=== PATIENT | male | born 1990 | race African-American/Black ===

== ENCOUNTER 2016-12-12 10:20 | Inpatient (IN) | payer SELFPAY ==
[~2016-12-12] VITALS: Ht 175.3 cm; Wt 100.0 kg
[~2016-12-12 10:20] MED LIST: Z.0.NO CURRENT MEDS
[2016-12-12 10:24] VITALS: BP 145/60; PULSE 118; RESP 16; TEMP 98.1; O2SAT 97
[2016-12-12 10:36] VITALS: BP 125/60; PULSE 112; RESP 21; O2SAT 95
[2016-12-12] MEDS ORDERED: BENZ100 PO (10:55)
[2016-12-12] MEDS ORDERED: GABA300C5 PO (10:55)
--- NOTE | 2016-12-12 11:06 | PD ---
HPI Chief Complaint: Chest Pain Time Seen by Provider: 10:37 Travel History International Travel<30 days: No Contact w/Intl Traveler<30days: No Traveled to known affect area: No History of Present Illness HPI 26-year-old male complains of chest pain, shortness of breath, abdominal pain and weight loss. Patient states that he was admitted to [facility] in 2010 for enlarged liver. Patient was discharged without clear etiology of enlarged liver. Patient started having chronic cough and chest pain for the past 6 months. Patient has been seen at [facility] and by personal physician without clear etiology of the chronic cough. Patient was put on several rounds of antibiotics including Z-Placido without relief. Patient states the cough is chronic and dry cough. Patient denies any fever chills. Patient states that he has frequent night sweat. Patient denies any dysuria or frequency. Patient states that he has substernal chest pain sharp pain and worse with swallowing and cough. Patient denies any chest pain radiation. Patient denies palpitation diaphoresis . Patient states that he has intermittent or abdominal pain diffuse over the abdomen. Patient denies any pain radiation. Patient states the pain is worse with pressure on the abdomen. Patient denies any history of cardiac or pulmonary disease. Patient states that he has recent weight loss. Patient complains of bilateral toe numbness for the past 4 months. Patient was seen by personal physician and at [facility] and put on gabapentin without much relief of the numbness of the toes. [facility] Past Medical History Diminished Hearing: No Gastrointestinal Disorders: Yes (LIVER IS ENLARGED 2010) Neurologic: Yes (NEUROPATHY) Immunizations Current: No Tetanus Vaccination: Unknown Influenza Vaccination: No Past Surgical History Appendectomy: Yes Social History Alcohol Use: No Tobacco Use: No Substance Use: No Allergies-Medications (Allergen,Severity, Reaction): Coded Allergies: Penicillin (Verified Allergy, Mild, 12/12/16) Reported Meds & Prescriptions Reported Meds & Active Scripts Active Reported Tessalon Perles (Benzonatate) 100 Mg Cap 100 Mg PO TID PRN Gabapentin 300 Mg Cap 300 Mg PO TID Review of Systems General / Constitutional: No: Fever Eyes: No: Visual changes HENT: No: Headaches Cardiovascular: Positive: Chest Pain or Discomfort Respiratory: No: Shortness of Breath Gastrointestinal: Positive: Abdominal Pain Genitourinary: No: Dysuria Musculoskeletal: No: Pain Skin: No Rash Neurologic: No: Weakness Psychiatric: No: Depression Endocrine: No: Polydipsia Hematologic/Lymphatic: No: Easy Bruising Physical Exam Narrative GENERAL: Well-nourished, well-developed patient. SKIN: Focused skin assessment warm/dry. HEAD: Normocephalic. EYES: No scleral icterus. No injection or drainage. NECK: Supple, trachea midline. No JVD or lymphadenopathy. CARDIOVASCULAR: Regular rate and rhythm without murmurs, gallops, or rubs. RESPIRATORY: Breath sounds equal bilaterally. No accessory muscle use. GASTROINTESTINAL: Abdomen soft, nondistended. Patient has mild diffuse tenderness over the abdomen. No rebound tenderness. No mass. MUSCULOSKELETAL: No cyanosis, or edema. BACK: Nontender without obvious deformity. No CVA tenderness. Neurologic exam normal. Data Data Last Documented VS Vital Signs Date Time Temp Pulse Resp B/P Pulse Ox O2 Delivery O2 Flow Rate FiO2 12/12/16 10:55 Room Air 12/12/16 10:36 112 21 125/60 95 12/12/16 10:24 98.1 Orders Electrocardiogram (12/12/16 10:53) Complete Blood Count With Diff (12/12/16 10:53) Comprehensive Metabolic Panel (12/12/16 10:53) Creatine Kinase (Cpk) (12/12/16 10:53) Troponin I (12/12/16 10:53) B-Type Natriuretic Peptide (12/12/16 10:53) Prothrombin Time / Inr (Pt) (12/12/16 10:53) Act Partial Throm Time (Ptt) (12/12/16 10:53) Lipase (12/12/16 10:53) Urinalysis - C+S If Indicated (12/12/16 10:53) Chest, Single Ap (12/12/16 10:53) Ct Abd/Pel W Iv Contrast(Rout) (12/12/16 10:53) Iv Access Insert/Monitor (12/12/16 10:53) Ecg Monitoring (12/12/16 10:53) Oximetry (12/12/16 10:53) Ct Pulmonary Angiogram (12/12/16 10:53) D-Dimer (12/12/16 10:53) Hiv 1 2 Ab Differentiation (12/12/16 10:59) CKMB (12/12/16 11:00) CKMB% (12/12/16 11:00) Iohexol 350 Inj (Omnipaque 350 Inj) (12/12/16 13:23) Ldh Serum (12/12/16 15:33) Lactic Acid Sepsis Protocol (12/12/16 15:33) Arterial Blood Gas (Abg) (12/12/16 ) Place In Observation (12/12/16 ) Vital Signs (Adult) MYLES.Q4H (12/12/16 15:33) Activity Bed Rest (12/12/16 15:33) Intake + Output 06,14,22 (12/12/16 15:33) Diet Regular Basic (12/12/16 Dinner) Resp Oxygen Shade C Titrat 1-4 L (12/12/16 ) Sodium Chloride 0.9% Flush (Ns Flush) (12/12/16 21:00) Benzonatate (Tessalon) (12/12/16 15:45) Gabapentin (Neurontin) (12/12/16 18:00) Guaifen-Cod 200-20 Mg/10ml Liq (Robituss (12/12/16 15:45) Guaifenesin Er (Mucinex Er) (12/12/16 21:00) Admit Order (Ed Use Only) (12/12/16 15:47) Levofloxacin 750 Mg Premix Inj (Levaquin (12/12/16 16:00) Sulfamet-Trimeth Ds 800-160 Mg (Bactrim (12/12/16 16:00) Labs Laboratory Tests Test 12/12/16 12/12/16 12/12/16 11:00 11:05 11:35 White Blood Count 5.5 TH/MM3 Red Blood Count 3.61 MIL/MM3 Hemoglobin 10.0 GM/DL Hematocrit 30.4 % Mean Corpuscular Volume 84.0 FL Mean Corpuscular Hemoglobin 27.8 PG Mean Corpuscular Hemoglobin 33.0 % Concent Red Cell Distribution Width 16.4 % Platelet Count 266 TH/MM3 Mean Platelet Volume 8.4 FL Neutrophils (%) (Auto) 69.2 % Lymphocytes (%) (Auto) 20.6 % Monocytes (%) (Auto) 9.0 % Eosinophils (%) (Auto) 0.3 % Basophils (%) (Auto) 0.9 % Neutrophils # (Auto) 3.8 TH/MM3 Lymphocytes # (Auto) 1.1 TH/MM3 Monocytes # (Auto) 0.5 TH/MM3 Eosinophils # (Auto) 0.0 TH/MM3 Basophils # (Auto) 0.1 TH/MM3 CBC Comment AUTO DIFF Differential Total Cells 100 Counted Neutrophils % (Manual) 63 % Band Neutrophils % 15 % Lymphocytes % 16 % Monocytes % 6 % Neutrophils # (Manual) 4.3 TH/MM3 Differential Comment FINAL DIFF MANUAL Platelet Estimate NORMAL Platelet Morphology Comment NORMAL Red Cell Morphology Comment NORMAL Prothrombin Time 10.8 SEC Prothromb Time International 1.0 RATIO Ratio Activated Partial 28.9 SEC Thromboplast Time D-Dimer Quantitative (PE/DVT) 0.79 MG/L FEU Sodium Level 139 MEQ/L Potassium Level 3.9 MEQ/L Chloride Level 106 MEQ/L Carbon Dioxide Level 24.8 MEQ/L Anion Gap 8 MEQ/L Blood Urea Nitrogen 14 MG/DL Creatinine 0.95 MG/DL Estimat Glomerular Filtration 117 ML/MIN Rate Random Glucose 70 MG/DL Calcium Level 8.1 MG/DL Total Bilirubin 0.5 MG/DL Aspartate Amino Transf 46 U/L (AST/SGOT) Alanine Aminotransferase 35 U/L (ALT/SGPT) Alkaline Phosphatase 63 U/L Total Creatine Kinase 358 U/L Creatine Kinase MB 1.5 NG/ML Creatine Kinase MB % 0.4 % Troponin I LESS THAN 0.02 NG/ML B-Type Natriuretic Peptide 17 PG/ML Total Protein 8.7 GM/DL Albumin 3.3 GM/DL Lipase 200 U/L Urine Color YELLOW Urine Turbidity CLEAR Urine pH 6.5 Urine Specific [place] 1.020 Urine Protein 30 mg/dL Urine Glucose (UA) NEG mg/dL Urine Ketones NEG mg/dL Urine Occult Blood NEG Urine Nitrite NEG Urine Bilirubin NEG Urine Urobilinogen 2.0 MG/DL Urine Leukocyte Esterase NEG Urine RBC LESS THAN 1 /hpf Urine WBC 1 /hpf Urine Squamous Epithelial <1 /hpf Cells Microscopic Urinalysis Comment CULT NOT INDICATED HIV (1&2) Antibody REFLEX MDM Medical Decision Making Medical Screen Exam Complete: Yes Emergency Medical Condition: Yes Interpretation(s) Last Impressions Chest X-Ray 12/12/16 1053 Signed Impressions: Service Date/Time: Monday, December 12, 2016 10:57 - CONCLUSION: 1. No acute cardiopulmonary disease. Aakash Bill MD 12 25 PM. CBC WBC 5.5. Hemoglobin 10.0 hematocrit 30.4. Normal differential. CMP within normal limit. Total CK 358. Normal MB fraction. Troponin normal. BNP normal. D-dimer 0.79. UA is negative. 1418 p.m. Differential Diagnosis Differential diagnosis including reactive airway disease, TB, HIV infection, bronchitis, pneumonia, gastritis, PUD, think otitis, cholecystitis, colitis, UTI , pyelonephritis, neuropathy. Narrative Course 26-year-old male with multiple complaints including chronic cough, chest pain, abdominal pain, weight loss, nasal and told numbness. Levaquin 750 mg IV. Bactrim DS one tablet by mouth given. Diagnosis Primary Impression: Pneumonia Qualified Code: J18.9 - Pneumonia of both lungs due to infectious organism, unspecified part of lung Additional Impressions: Viral infection Atypical chest pain Dysphagia Qualified Code: R13.19 - Other dysphagia Abdoul Burns MD Dec 12, 2016 11:06
--- NOTE | 2016-12-12 11:25 | RADRPT ---
EXAM DATE/TIME: 12/12/2016 10:57 [facility] COMPARISON: No previous studies available for comparison. INDICATIONS : Short of breath and chest pain. MEDICAL HISTORY : None. SURGICAL HISTORY : None. ENCOUNTER: Initial ACUITY: 4 - 6 months PAIN SCORE: 0/10 LOCATION: Bilateral chest FINDINGS: A single view of the chest demonstrates the lungs to be symmetrically aerated without evidence of mas s, infiltrate or effusion. The cardiomediastinal contours are unremarkable. Osseous structures are intact. CONCLUSION: 1. No acute cardiopulmonary disease. Aakash Bill MD on December 12, 2016 at 11:22 Board Certified Radiologist. This report was verified electronically.
[2016-12-12 11:31] LABS: AUTOMATED NEUTROPHIL # 3.8 TH/MM3 (1.8-7.7); BASOPHIL # 0.1 TH/MM3 (0-0.2); BASOPHIL % 0.9 % (0.0-2.0); EOSINOPHIL % 0.3 % (0.0-4.0); HEMATOCRIT 30.4 % (39.0-51.0); LYMPH % 20.6 % (9.0-44.0); LYMPHOCYTE # 1.1 TH/MM3 (1.0-4.8); MEAN CORPUSCULAR HEMOGLOBIN 27.8 PG (27.0-34.0); NEUT % 69.2 % (16.0-70.0); PLATELET COUNT 266 TH/MM3 (150-450); RED BLOOD COUNT 3.61 MIL/MM3 (4.50-5.90); RED CELL DISTRIBUTION WIDTH 16.4 % (11.6-17.2); WHITE BLOOD COUNT 5.5 TH/MM3 (4.0-11.0)
[2016-12-12 11:32] LABS: HEMO FLAGS AUTO DIFF
[2016-12-12 11:38] LABS: BLOOD, URINE NEG (NEG); COMMENT (UR) CULT NOT INDICATED; CULTURE IF INDICATED CULT NOT INDICATED; GLUCOSE,URINE NEG (NEG); KETONE, URINE NEG (NEG); NITRITE,URINE NEG (NEG); PH, URINE 6.5 (5.0-8.5); SQUAMOUS EPITHELIAL CELL URINE <1 /hpf (0-5); URINE COLOR YELLOW (YELLW/STRAW)
[2016-12-12 11:46] LABS: APTT (PATIENT) 28.9 SEC (24.3-30.1); PROTHROMBIN TIME - PATIENT 10.8 SEC (9.8-11.6)
[2016-12-12 11:58] LABS: ALKALINE PHOSPHATASE 63 U/L (45-117); ALT (GPT) 35 U/L (12-78); ANION GAP 8 MEQ/L (5-15); AST (GOT) 46 U/L (15-37); BICARBONATE 24.8 MEQ/L (21.0-32.0); BLOOD UREA NITROGEN 14 MG/DL (7-18); CHLORIDE 106 MEQ/L (98-107); CREATINE KINASE 358 U/L (39-308); GLOMERULAR FILTRATION RATE 117 ML/MIN (>89); POTASSIUM 3.9 MEQ/L (3.5-5.1); SODIUM (NA) 139 MEQ/L (136-145); TOTAL BILIRUBIN ADULT 0.5 MG/DL (0.2-1.0)
[2016-12-12 12:09] LABS: BANDS 15 % (0-6); NEUTROPHIL # MANUAL DIFF 4.3 TH/MM3 (1.8-7.7); PLATELET ESTIMATE SMEAR NORMAL (NORMAL); PLATELET MORPHOLOGY NORMAL (NORMAL); POLYS (SEG NEUTROPHILS) 63 % (16-70); SCAN/DIFF FINAL DIFF MANUAL; WBC DIFF SAMPLE 100
[2016-12-12 12:10] LABS: CKMB 1.5 NG/ML (0.5-3.6)
[2016-12-12] MEDS ORDERED: IOHEXOL 350 MG/ML 10 ML VIAL (for RAD DIAG) IV ONE (13:23)
--- NOTE | 2016-12-12 13:56 | RADRPT ---
EXAM DATE/TIME: 12/12/2016 12:40 [facility] COMPARISON: No previous studies available for comparison. INDICATIONS : Chronic cough and chest, abdominal pain for 6 months IV CONTRAST: 95 cc Omnipaque 350 (iohexol) IV ORAL CONTRAST: No oral contrast ingested. RADIATION DOSE: 15.14 CTDIvol (mGy) MEDICAL HISTORY : Enlarged liver SURGICAL HISTORY : Appendectomy. ENCOUNTER: Initial ACUITY: 4 - 6 months PAIN SCALE: 7/10 LOCATION: Abdomen TECHNIQUE: Volumetric scanning of the chest was performed using a pulmonary embolism protocol MIP images were re constructed. Using automated exposure control and adjustment of the mA and/or kV according to patien t size, radiation dose was kept as low as reasonably achievable to obtain optimal diagnostic quality images. FINDINGS: No pulmonary embolus is identified. There are mild scattered areas of vague parenchymal density seen throughout the lungs likely representing areas of atelectasis or mild inters titial consolidation. There is some more focal increased density at the right middle lobe and posterior med ial lower lobes bilaterally being more prominent on the left likely representing some more prominent super-impo sed atelectasis or mild consolidation. There is a 5 mm pulmonary nodule seen at the posterior medial rig ht lower lobe. No pleural effusion is seen. There is a normal amount of pericardial fluid seen. Significant adenopathy is not appreciated. CONCLUSION: 1. No pulmonary embolus. 2. Multiple patchy areas of faint opacities seen throughout the lungs likely representing areas of at electasis or interstitial consolidation. There are some more focal areas of more prominent atelectas is or consolidation seen on the right middle lobe and the posterior lower lobes bilaterally. 3. 5 mm non-specific pulmonary nodule in the right lower lobe, this does appear smooth. Given the pa tient age this likely represents a non-calcified granuloma. It could be followed up with a noncontra st CT examination in one year. Kai Prescott MD on December 12, 2016 at 13:20 Board Certified Radiologist. This report was verified electronically.
--- NOTE | 2016-12-12 14:13 | RADRPT ---
EXAM DATE/TIME: 12/12/2016 12:40 [facility] COMPARISON: No previous studies available for comparison. INDICATIONS : Generalized abdominal pain. IV CONTRAST: 96 cc Omnipaque 350 (iohexol) IV ; Cumulative dose for multiple exams. ORAL CONTRAST: No oral contrast ingested. RADIATION DOSE: 15.14 CTDIvol (mGy) MEDICAL HISTORY : None SURGICAL HISTORY : Appendectomy. ENCOUNTER: Initial ACUITY: 1 day PAIN SCALE: 0/10 LOCATION: Bilateral abdomen TECHNIQUE: Volumetric scanning of the abdomen and pelvis was performed. Using automated exposure control and ad justment of the mA and/or kV according to patient size, radiation dose was kept as low as reasonably achievable to obtain optimal diagnostic quality images. FINDINGS: LOWER LUNGS: Minimal bibasilar atelectasis versus scarring. LIVER: Homogeneous density without lesion. There is no dilation of the biliary tree. No calcified gallston es. SPLEEN: Normal size without lesion. PANCREAS: Within normal limits. KIDNEYS: Normal in size and shape. There is no mass, stone or hydronephrosis. ADRENAL GLANDS: Within normal limits. VASCULAR: There is no aortic aneurysm. BOWEL/MESENTERY: Postsurgical features of prior appendectomy. Bowel appears grossly unremarkable without evidence for obstruction. No significant free fluid or air the fluid collection. ABDOMINAL WALL: Within normal limits. RETROPERITONEUM: There is no lymphadenopathy. BLADDER: No wall thickening or mass. REPRODUCTIVE: Within normal limits. INGUINAL: There is no lymphadenopathy or hernia. MUSCULOSKELETAL: Within normal limits for patient age. CONCLUSION: 1. Postsurgical features of prior appendectomy. 2. No CT findings to explain patient's abdominal pain. 3. Unremarkable CT examination of the abdomen and pelvis. Aakash Bill MD on December 12, 2016 at 14:05 Board Certified Radiologist. This report was verified electronically.
[2016-12-12] MEDS ORDERED: guaiFENesin/CODEINE SYRUP 200 MG/20 MG/10 ML CUP PO PRN (15:45)
[2016-12-12] MEDS ORDERED: BENZONATATE 100 MG CAP PO PRN (15:45)
[2016-12-12] MEDS ORDERED: LEVOFLOXACIN 750 MG PREMIX INJ 150 ML IV ONE (16:00)
[2016-12-12] MEDS ORDERED: SULFAMETHOXAZOLE-TRIMETHOPRIM DS 800-160 MG TAB PO ONE (16:00)
[2016-12-12] MEDS ORDERED: ALUMINUM/MAGNESIUM/SIMETH 30 ML CUP PO PRN (16:15)
[2016-12-12] MEDS ORDERED: SODIUM CHLORIDE 0.9% FLUSH 10 ML FLUSH IV FLUSH PRN (16:15)
[2016-12-12] MEDS ORDERED: CALCIUM CARBONATE 500 MG CHEWABLE TAB CHEW PRN (16:15)
[2016-12-12] MEDS ORDERED: MAGNESIUM HYDROXIDE SUSP 30 ML CUP PO PRN (16:15)
[2016-12-12] MEDS ORDERED: traMADol HCL 50 MG TAB PO PRN ×2 (16:15)
[2016-12-12] MEDS ORDERED: ONDANSETRON HCL 4 MG/2 ML VIAL IVP PRN (16:15)
[2016-12-12] MEDS ORDERED: NALOXONE HCL 0.4 MG/ML AMP IV PRN (16:15)
[2016-12-12] MEDS ORDERED: LACTULOSE SYRUP 20 GM/30 ML CUP PO PRN (16:15)
[2016-12-12] MEDS ORDERED: ACETAMINOPHEN 325 MG TAB PO PRN ×2 (16:15)
[2016-12-12] MEDS ORDERED: MORPHINE SULFATE 4 MG/ML INJ IV PRN (16:15)
--- NOTE | 2016-12-12 16:35 | HHI.HP ---
[facility] Physician Gtuierrez Leon MD Admission Diagnosis pneumonia. Viral infection Diagnoses: Chief Complaint: Chest pain Travel History International Travel<30 Days: No Contact w/Intl Traveler <30 Da: No Traveled to Known Affected Are: No Sepsis Criteria SIRS Criteria (2 or more): Heart rate over 90, WBC > 70245, < 4000 or > 10% bands Sepsis Criteria (SIRS+source): Infect source susp/known Criteria Outcome: Meets sepsis criteria History of Present Illness This is a 26-year-old male with a history of enlarged liver and peripheral neuropathy. He presents to the emergency department because of worsening chest pain. Started about 6 months ago he developed nonproductive cough. States he was prescribed Z-Placido 5 months ago by his PCP with partial temporary improvement of his symptoms. It is associated with transient fever and night sweats. He also reports of weight loss of 30 pounds denies anorexia. He was again treated with the same antibiotic 3 months ago with similar results. No TB exposure but works in a [employer]. For the past week he has complained of intermittent pleuritic retrosternal sharp pain worse with coughing and eating. He also notes of odynophagia. In the emergency department, tested positive for HIV pending confirmatory test. CTA no PE but was abnormal showing multiple patchy areas of faint opacity seen throughout the lungs likely representing areas of atelectasis or interstitial consolidation. There are some more focal areas of more prominent atelectasis or consolidation seen on the right middle lobe in the posterior lower lobes bilaterally. He has been recommended admission for further evaluation and treatment for possible PCP. Denies risk factors for HIV. He also meets criteria for sepsis. Also endorses bilateral toe numbness for the past 4 months. All other systems reviewed negative Review of Systems Except as stated in HPI: all other systems reviewed are Neg Past Family Social History Past Medical History As previously mentioned Past Surgical History Appendectomy Reported Medications Tessalon and gabapentin Allergies: Coded Allergies: Penicillin (Verified Allergy, Mild, 12/12/16) Levaquin (Verified Allergy, Unknown, HIVES, 12/12/16) Family History No diabetes Social History Does not smoke or drink. No illicit drug use. He works in a nightclub Physical Exam Vital Signs Vital Signs Date Time Temp Pulse Resp B/P Pulse Ox O2 Delivery O2 Flow Rate FiO2 12/12/16 10:55 Room Air 12/12/16 10:36 112 21 125/60 95 12/12/16 10:24 98.1 118 16 145/60 97 Physical Exam GENERAL: This is a well-nourished, well-developed patient, in no apparent distress. SKIN: No rashes, ecchymoses or lesions. Cool and dry. HEAD: Atraumatic. Normocephalic. No temporal or scalp tenderness. EYES: Pupils equal round and reactive. Extraocular motions intact. No scleral icterus. No injection or drainage. ENT: Nose without bleeding, purulent drainage or septal hematoma. Throat without erythema, tonsillar hypertrophy or exudate. Uvula midline. Airway patent. NECK: Trachea midline. No JVD or lymphadenopathy. Supple, nontender, no meningeal signs. CARDIOVASCULAR: Regular rate and rhythm without murmurs, gallops, or rubs. RESPIRATORY: Clear to auscultation. Breath sounds equal bilaterally. No wheezes , rales, or rhonchi. GASTROINTESTINAL: Abdomen soft, non-tender, nondistended. No guarding. MUSCULOSKELETAL: Extremities without clubbing, cyanosis, or edema. No joint tenderness, effusion, or edema noted. No calf tenderness. Negative Homans sign bilaterally. NEUROLOGICAL: Awake and alert. Cranial nerves II through XII intact. Motor and sensory grossly within normal limits. Five out of 5 muscle strength in all muscle groups. Normal speech. Laboratory Laboratory Tests Test 12/12/16 12/12/16 12/12/16 11:00 11:05 11:35 White Blood Count 5.5 Red Blood Count 3.61 Hemoglobin 10.0 Hematocrit 30.4 Mean Corpuscular Volume 84.0 Mean Corpuscular Hemoglobin 27.8 Mean Corpuscular Hemoglobin 33.0 Concent Red Cell Distribution Width 16.4 Platelet Count 266 Mean Platelet Volume 8.4 Neutrophils (%) (Auto) 69.2 Lymphocytes (%) (Auto) 20.6 Monocytes (%) (Auto) 9.0 Eosinophils (%) (Auto) 0.3 Basophils (%) (Auto) 0.9 Neutrophils # (Auto) 3.8 Lymphocytes # (Auto) 1.1 Monocytes # (Auto) 0.5 Eosinophils # (Auto) 0.0 Basophils # (Auto) 0.1 CBC Comment AUTO DIFF Differential Total Cells 100 Counted Neutrophils % (Manual) 63 Band Neutrophils % 15 Lymphocytes % 16 Monocytes % 6 Neutrophils # (Manual) 4.3 Differential Comment FINAL DIFF MANUAL Platelet Estimate NORMAL Platelet Morphology Comment NORMAL Red Cell Morphology Comment NORMAL Prothrombin Time 10.8 Prothromb Time International 1.0 Ratio Activated Partial 28.9 Thromboplast Time D-Dimer Quantitative (PE/DVT) 0.79 Sodium Level 139 Potassium Level 3.9 Chloride Level 106 Carbon Dioxide Level 24.8 Anion Gap 8 Blood Urea Nitrogen 14 Creatinine 0.95 Estimat Glomerular Filtration 117 Rate Random Glucose 70 Calcium Level 8.1 Total Bilirubin 0.5 Aspartate Amino Transf 46 (AST/SGOT) Alanine Aminotransferase 35 (ALT/SGPT) Alkaline Phosphatase 63 Total Creatine Kinase 358 Creatine Kinase MB 1.5 Creatine Kinase MB % 0.4 Troponin I LESS THAN 0.02 B-Type Natriuretic Peptide 17 Total Protein 8.7 Albumin 3.3 Lipase 200 Urine Color YELLOW Urine Turbidity CLEAR Urine pH 6.5 Urine Specific [place] 1.020 Urine Protein 30 Urine Glucose (UA) NEG Urine Ketones NEG Urine Occult Blood NEG Urine Nitrite NEG Urine Bilirubin NEG Urine Urobilinogen 2.0 Urine Leukocyte Esterase NEG Urine RBC LESS THAN 1 Urine WBC 1 Urine Squamous Epithelial <1 Cells Microscopic Urinalysis Comment CULT NOT INDICATED HIV (1&2) Antibody REFLEX Result Diagram: 12/12/16 1100 12/12/16 1100 Imaging EKG tracing interpreted by me with sinus tachycardia Chest x-ray with no acute cardiopulmonary disease image interpreted by me Last Impressions Chest X-Ray 12/12/16 1053 Signed Impressions: Service Date/Time: Monday, December 12, 2016 10:57 - CONCLUSION: 1. No acute cardiopulmonary disease. Aakash Bill MD Abdomen/Pelvis CT 12/12/16 1053 Signed Impressions: Service Date/Time: Monday, December 12, 2016 12:40 - CONCLUSION: 1. Postsurgical features of prior appendectomy. 2. No CT findings to explain patient's abdominal pain. 3. Unremarkable CT examination of the abdomen and pelvis. Aakash Bill MD Assessment and Plan Problem List: (1) Pneumonia ICD Code: J18.9 Status: Acute (2) Atypical chest pain ICD Code: R07.89 Status: Acute Assessment and Plan This is a 26-year-old male who presents to the emergency department because of worsening chest pain. Started about 6 months ago he developed nonproductive cough. States he was prescribed Z-Placido 5 months ago by his PCP with partial temporary improvement of his symptoms. It is associated with transient fever and night sweats. He also reports of weight loss of 30 pounds denies anorexia. He was again treated with the same antibiotic 3 months ago with similar results. No TB exposure but works in a [employer]. For the past week he has complained of intermittent pleuritic retrosternal sharp pain worse with coughing and eating. He also notes of odynophagia. In the emergency department , tested positive for HIV pending confirmatory test. CTA no PE but was abnormal showing multiple patchy areas of faint opacity seen throughout the lungs likely representing areas of atelectasis or interstitial consolidation. There are some more focal areas of more prominent atelectasis or consolidation seen on the right middle lobe in the posterior lower lobes bilaterally. He has been recommended admission for further evaluation and treatment for possible PCP. Denies risk factors for HIV. He also meets criteria for sepsis. Pneumonia. Suspect PCP with a preliminary positive HIV test. CTA with no pulmonary embolus but shows multiple patchy areas of faint opacity seen throughout the lungs likely representing areas of atelectasis or interstitial consolidation. There are some more focal areas of more prominent atelectasis or consolidation seen on the right middle lobe in the posterior lower lobes bilaterally. Check LDH. Start Bactrim IV and consider prednisone pending ABG. Obtain sputum and urinary pneumococcal and Legionella antigen. Consult ID Sepsis. Obtain lactic acid Atypical chest pain secondary to above. EKG with sinus tachycardia. CTA negative for PE Pulmonary nodule in the right lower lobe. Follow-up noncontrast CT in 1 year Odynophagia with epigastric tenderness. Lipase within normal limits. PPI. Consult GI for possible endoscopy Weight loss likely related to above. Obtain TSH Mild AST elevation with history of enlarged liver. Outpatient follow-up Normocytic normochromic anemia. Obtain iron studies. Guaiac stool. Monitor History of neuropathy. Continue Neurontin Low risk for DVT Discussed Condition With Patient and girlfriend(pt requests she be not informed re HIV results. He will make her aware once confirmed. [place] precautions discussed with him) Physician Certification 2 Midnight Certification Type: Admission for Inpatient Services Order for Inpatient Services The services are ordered in accordance with Medicare regulations or non- Medicare payer requirements, as applicable. In the case of services not specified as inpatient-only, they are appropriately provided as inpatient services in accordance with the 2-midnight benchmark. Estimated LOS (days): 2 days is the estimated time the patient will need to remain in the hospital, assuming treatment plan goals are met and no additional complications. Post-Hospital Plan: Home Problem Qualifiers (1) Pneumonia: Qualified Code: J18.9 - Pneumonia of both lungs due to infectious organism, unspecified part of lung Gama Suarez MD Dec 12, 2016 16:35
[2016-12-12 16:40] VITALS: O2SAT 95
[2016-12-12 16:42] LABS: BLOOD GAS CARBOXYHEMOGLOBIN 1.2 % (0-4); BLOOD GAS HCO3 23 mmol/L (22-26); BLOOD GAS METHEMOGLOBIN 0.5 % (0-2); BLOOD GAS O2 HGB SATURATION 93 % (90-100); BLOOD GAS OXYGEN CONTENT 13.9 Vol % (12.0-20.0); BLOOD GAS PCO2 34 mmHg (38-42); BLOOD GAS PO2 73 mmHG (61-120); BLOOD GAS TOTAL HGB 10.6 G/DL (12.0-16.0); CRITICAL VALUE NO; DRAW SITE RT RADIAL; FIO2 21 %; NUMBER OF ARTERIAL PUNCTURES 1; STAT YES; TEMP CORR TO 98.6; ULNAR PULSE PRESENT
[2016-12-12 17:00] VITALS: BP 120/74; PULSE 104; RESP 24; O2SAT 99
--- NOTE | 2016-12-12 17:08 | PD.CONS ---
HPI History of Present Illness This is a 26 year old with hx enlarged liver, peripheral neuropathy, who presented to ER today for chest pains and worsening of peripheral neuropathy in his feet, he could barely walk. He has had painful swallowing for two and a half weeks. It also hurts if he coughs. It hurts when he eats but he is able to drink water. The pain when swallowing is in mid sternal. He went to see his PCP and was told it was URI. 2 and half weeks ago he had neg rapid strep test at [facility], was given 2 zpacks. He has had a cough for [address] he may have PNA. Has lost 30 lbs in 6 months, denies change in appetite or food intake. Denies regurgitating food, n/v, abdominal pain, diarrhea, acid reflux, change in bowel habits. Never had EGD. He has hx enlarged liver, says he was in the hospital in 2010 when it was discovered and had colonoscopy, doesn't recall findings. [facility] Past Medical History enlarged liver peripheral neuropathy Past Surgical History Appendectomy colonoscopy 2010 Coded Allergies: Penicillin (Verified Allergy, Mild, 12/12/16) Levaquin (Verified Allergy, Unknown, HIVES, 12/12/16) Family History none Social History rare ETOH, no tobacco products, illicit drugs Review of Systems Constitutional: COMPLAINS OF: Diaphoretic episodes, Fever Eyes: DENIES: Blurred vision Ears, nose, mouth, throat: DENIES: Hearing loss Respiratory: COMPLAINS OF: Cough, DENIES: Hemoptysis, Shortness of breath Cardiovascular: COMPLAINS OF: Chest pain (sternal area when swallowing), DENIES: Palpitations Gastrointestinal: DENIES: Abdominal pain, Black stools, Bloody stools, Diarrhea , Nausea, Vomiting, Hematemesis Genitourinary: DENIES: Hematuria Musculoskeletal: DENIES: Muscle aches Neurologic: COMPLAINS OF: Paresthesias Psychiatric: DENIES: Confusion GI Exam Vitals I&O Vital Signs Date Time Temp Pulse Resp B/P Pulse Ox O2 Delivery O2 Flow Rate FiO2 12/12/16 16:40 95 21 12/12/16 10:55 Room Air 12/12/16 10:36 112 21 125/60 95 12/12/16 10:24 98.1 118 16 145/60 97 Imaging Last Impressions Chest X-Ray 12/12/16 105 Signed Impressions: Service Date/Time: Monday, December 12, 2016 10:57 - CONCLUSION: 1. No acute cardiopulmonary disease. Aakash Bill MD CT Angiography 12/12/16 105 Signed Impressions: Service Date/Time: Monday, December 12, 2016 12:40 - CONCLUSION: 1. No pulmonary embolus. 2. Multiple patchy areas of faint opacities seen throughout the lungs likely representing areas of atelectasis or interstitial consolidation. There are some more focal areas of more prominent atelectasis or consolidation seen on the right middle lobe and the posterior lower lobes bilaterally. 3. 5 mm non-specific pulmonary nodule in the right lower lobe, this does appear smooth. Given the patient age this likely represents a non-calcified granuloma. It could be followed up with a noncontrast CT examination in one year. Kai Prescott MD Abdomen/Pelvis CT [id number]/12/[id number] Signed Impressions: Service Date/Time: Monday, December 12, 2016 12:40 - CONCLUSION: 1. Postsurgical features of prior appendectomy. 2. No CT findings to explain patient's abdominal pain. 3. Unremarkable CT examination of the abdomen and pelvis. Aakash Bill MD Laboratory Test 12/12/16 12/12/16 12/12/16 12/12/16 11:00 11:05 11:35 16:28 White Blood Count 5.5 TH/MM3 Red Blood Count 3.61 MIL/MM3 Hemoglobin 10.0 GM/DL Hematocrit 30.4 % Mean Corpuscular Volume 84.0 FL Mean Corpuscular Hemoglobin 27.8 PG Mean Corpuscular Hemoglobin 33.0 % Concent Red Cell Distribution Width 16.4 % Platelet Count 266 TH/MM3 Mean Platelet Volume 8.4 FL Neutrophils (%) (Auto) 69.2 % Lymphocytes (%) (Auto) 20.6 % Monocytes (%) (Auto) 9.0 % Eosinophils (%) (Auto) 0.3 % Basophils (%) (Auto) 0.9 % Neutrophils # (Auto) 3.8 TH/MM3 Lymphocytes # (Auto) 1.1 TH/MM3 Monocytes # (Auto) 0.5 TH/MM3 Eosinophils # (Auto) 0.0 TH/MM3 Basophils # (Auto) 0.1 TH/MM3 CBC Comment AUTO DIFF Differential Total Cells 100 Counted Neutrophils % (Manual) 63 % Band Neutrophils % 15 % Lymphocytes % 16 % Monocytes % 6 % Neutrophils # (Manual) 4.3 TH/MM3 Differential Comment FINAL DIFF MANUAL Platelet Estimate NORMAL Platelet Morphology Comment NORMAL Red Cell Morphology Comment NORMAL Prothrombin Time 10.8 SEC Prothromb Time International 1.0 RATIO Ratio Activated Partial 28.9 SEC Thromboplast Time D-Dimer Quantitative (PE/DVT) 0.79 MG/L FEU Sodium Level 139 MEQ/L Potassium Level 3.9 MEQ/L Chloride Level 106 MEQ/L Carbon Dioxide Level 24.8 MEQ/L Anion Gap 8 MEQ/L Blood Urea Nitrogen 14 MG/DL Creatinine 0.95 MG/DL Estimat Glomerular Filtration 117 ML/MIN Rate Random Glucose 70 MG/DL Calcium Level 8.1 MG/DL Total Bilirubin 0.5 MG/DL Aspartate Amino Transf 46 U/L (AST/SGOT) Alanine Aminotransferase 35 U/L (ALT/SGPT) Alkaline Phosphatase 63 U/L Total Creatine Kinase 358 U/L Creatine Kinase MB 1.5 NG/ML Creatine Kinase MB % 0.4 % Troponin I LESS THAN 0.02 NG/ML B-Type Natriuretic Peptide 17 PG/ML Total Protein 8.7 GM/DL Albumin 3.3 GM/DL Lipase 200 U/L Urine Color YELLOW Urine Turbidity CLEAR Urine pH 6.5 Urine Specific [place] 1.020 Urine Protein 30 mg/dL Urine Glucose (UA) NEG mg/dL Urine Ketones NEG mg/dL Urine Occult Blood NEG Urine Nitrite NEG Urine Bilirubin NEG Urine Urobilinogen 2.0 MG/DL Urine Leukocyte Esterase NEG Urine RBC LESS THAN 1 /hpf Urine WBC 1 /hpf Urine Squamous Epithelial <1 /hpf Cells Microscopic Urinalysis Comment CULT NOT INDICATED HIV (1&2) Antibody REFLEX Blood Gas Puncture Site RT RADIAL Blood Gas Patient Temperature 98.6 Blood Gas HCO3 23 mmol/L Blood Gas Base Excess 0.0 mmol/L Blood Gas Oxygen Saturation 93 % Arterial Blood pH 7.46 Arterial Blood Partial 34 mmHg Pressure CO2 Arterial Blood Partial 73 mmHG Pressure O2 Arterial Blood Oxygen Content 13.9 Vol % Arterial Blood 1.2 % Carboxyhemoglobin Arterial Blood Methemoglobin 0.5 % Blood Gas Hemoglobin 10.6 G/DL Blood Gas Inspired Oxygen 21 % Physical Examination HEENT: PERRL; normocephalic; atraumatic; no jaundice. CHEST: diminished CARDIAC: tachy ABDOMEN: Soft, nondistended, RUQ TTP; bowel sounds are present in all four quadrants. EXTREMITIES: No clubbing, cyanosis, or edema. SKIN: warm; no rash; no jaundice. STRUCTURES ENGINEER: No focal deficits; alert and oriented times three. Assessment and Plan Plan ASSESSMENT - odynophagia - onset 2.5 weeks ago, hx 2 x zpacks in the last couple weeks. Mid sternal pain swallowing solid food. could be megan - weight loss - 30 lbs in 6m. unclear etiology - isolated elevation AST - rare ETOH consumptions. RUQ pain. Pt claims hx enlarged liver, CT unremarkable. iron studies pending. Will do hep panel, US - anemia - Hgb 10.0 on admission. hemoccult pending. - HIV - pos initial test, confirmatory test pending - PNA - per primary - sepsis - per primary PLAN - EGD tomorrow - liquid diet - NPO after midnight - obtain consents - hepatitis panel - [facility] - Further recommendations to follow This pt seen by myself and Dr Loya and this note is written on his behalf. Cata Joel Dec 12, 2016 17:08
--- NOTE | 2016-12-12 17:14 | EKG ---
Date Performed: 12/12/2016 Time Performed: 10:31:35 PTAGE: 26 years EKG: SINUS TACHYCARDIA NONSPECIFIC T-WAVE ABNORMALITY ABNORMAL RHYTHM ECG NO PREVIOUS TRACING DOCTOR: Juvencio Weinstein Interpretating Date/Time 12/12/2016 17:09:33
[2016-12-12] MEDS: TRIMETHOPRIM IV SCH ×2 (17:28)
[2016-12-12] MEDS: WATE IV SCH ×2 (17:28)
[2016-12-12] MEDS: DEXTROSE 5% IV SCH ×2 (17:28)
[2016-12-12] MEDS: SULFAMETHOX IV SCH ×2 (17:28)
[2016-12-12] MEDS: PANTOPRAZOLE SOD 40 MG DELAYED RELEASE TAB PO SCH (17:28)
[2016-12-12] MEDS: SODIUM CHLOR 0.9% 1000 ML INJ 1,000 ML IV SCH (17:28)
[2016-12-12] MEDS: GABAPENTIN 300 MG CAP PO SCH (17:29)
[2016-12-12 19:33] VITALS: BP 127/58; PULSE 104; RESP 19; O2SAT 96
[2016-12-12 20:23] VITALS: BP 116/57; PULSE 96; RESP 17; TEMP 98.6; O2SAT 95
[2016-12-12] MEDS: SODIUM CHLORIDE 0.9% FLUSH 10 ML FLUSH IV FLUSH SCH (21:00)
[2016-12-12] MEDS ORDERED: SODIUM CHLORIDE 0.9% FLUSH 10 ML FLUSH IV FLUSH SCH (21:00)
[2016-12-12] MEDS: DOCUSATE SODIUM 50 MG/SENNA 8.6 MG TAB PO SCH (22:54)
[2016-12-12] MEDS: guaiFENesin E.R. 600 MG TAB PO SCH (22:54)
--- NOTE | 2016-12-12 23:30 | MB ---
cc: TIFFANI SUAREZ MD, FRANKLYN F. MD DATE OF CONSULTATION: 12/12/2016 REASON FOR CONSULTATION: PCP suspect with sepsis. REQUESTING PHYSICIAN Dr. Suarez HISTORY OF PRESENT ILLNESS This is a 26-year-old male who came to the emergency department because of chest pain. The patient developed shortness of breath and chest pain. He was evaluated and has been admitted to the hospital. The patient notes that over the past 6 months he has suffered from chronic cough and occasionally brings up yellow sputum. He has been treated with several rounds of oral antibiotics without relief. He states that whenever he drinks liquids he gets burning in the chest lately and he also notes that he gets burning in his feet. He was noted to have enlarged liver in 2010 without any etiology. His notes that he has lost approximately 20 pounds of weight. He was recently treated with gabapentin but did not much relief on the numbness of the extremities. On evaluation his heart rate was 112. His white blood cell count was normal, 15% bands. The patient had an HIV screen which reflects positive. [facility]. He denies risk factors for HIV. CT angiogram of the chest shows multiple patchy areas of opacities toward the lungs likely representing atelectasis or interstitial consolidation. Examination of the abdomen and pelvis is unremarkable. PAST MEDICAL HISTORY Appendectomy. ALLERGIES PENICILLIN LEVAQUIN MEDICATIONS 1. Bactrim IV 2. Mucinex. 3. Neurontin 4. Kenzie-Colace. 5. Protonix. 6. Robitussin AC. SOCIAL HISTORY No tobacco, alcohol or illicit drugs. FAMILY HISTORY Noncontributory. REVIEW OF SYSTEMS Pertinent as mentioned above in the history of present illness. PHYSICAL EXAMINATION: This is a well-developed male who is in no acute distress. He is awake, alert and oriented. Vital signs: Include temperature of 98.1, BP 127/58, respirations 89.14. Heart rate 104. HEENT: The head is atraumatic. Extraocular movements grossly intact, pupils reactive to light. No icterus. Oropharynx, no visible lesions. Neck: Supple without adenopathy. Lungs: Clear breath sounds. Heart: Regular rate and rhythm without murmurs, rubs or gallops. Abdomen: Bowel sounds present, soft, nontender. No hepatosplenomegaly. Rectal: Not performed. Extremities: No clubbing, cyanosis or edema. The patient has erosion of both nail beds at the great toe, left and right. Skin: Skin is dry and has a faint hyperemic discoloration at the tibias. No diffuse rash. Neuro: Strength 4/5 at the left upper and left lower extremity, otherwise, no gross focal findings. Psych: The patient is calm and cooperative. LABORATORY DATA WBC 5.5, platelets 266, hemoglobin 10.0, creatinine 0.95, BUN 14, sodium 139, AST 46, ALT 35. IMPRESSION 1. Immunosuppression secondary to HIV disease likely with positive preliminary HIV test. 2. Pneumonia, probably opportunistic versus viral. RECOMMENDATIONS Continue Bactrim Obtain LDH. Follow HIV test Obtain sputum for culture if possible. Thank you this consultation. The patient's progress will be monitored and further recommendations will be made on followup if necessary. Marlon Paige MD FD/MAURISIO /7:35 PM /10:49 PM
[2016-12-13] VITALS: BP 107/54; PULSE 98; RESP 17; TEMP 99.5; O2SAT 95
[2016-12-13] MEDS: TRIMETHOPRIM IV SCH ×6 (00:07→13:40)
[2016-12-13] MEDS: WATE IV SCH ×6 (00:07→13:40)
[2016-12-13] MEDS: DEXTROSE 5% IV SCH ×6 (00:07→13:40)
[2016-12-13] MEDS: SULFAMETHOX IV SCH ×6 (00:07→13:40)
[2016-12-13 04:00] VITALS: BP 110/60; PULSE 79; RESP 17; TEMP 98.2; O2SAT 95
[2016-12-13 05:02] LABS: AUTOMATED NEUTROPHIL # 2.2 TH/MM3 (1.8-7.7); BASOPHIL % 0.6 % (0.0-2.0); EOSINOPHIL % 0.3 % (0.0-4.0); HEMATOCRIT 29.2 % (39.0-51.0); LYMPH % 25.2 % (9.0-44.0); LYMPHOCYTE # 0.9 TH/MM3 (1.0-4.8); MEAN CELL VOLUME 84.6 FL (80.0-100.0); MEAN CORPUSCULAR HEMOGLOBIN 27.3 PG (27.0-34.0); MEAN CORPUSCULAR HGB CONC 32.3 % (32.0-36.0); MONO % 10.5 % (0.0-8.0); NEUT % 63.4 % (16.0-70.0); PLATELET COUNT 247 TH/MM3 (150-450); RED BLOOD COUNT 3.45 MIL/MM3 (4.50-5.90); RED CELL DISTRIBUTION WIDTH 16.7 % (11.6-17.2); WHITE BLOOD COUNT 3.5 TH/MM3 (4.0-11.0)
[2016-12-13 05:07] LABS: HEMO FLAGS AUTO DIFF
[2016-12-13] MEDS: SODIUM CHLOR 0.9% 1000 ML INJ 1,000 ML IV SCH ×2 (05:14→21:47)
[2016-12-13 05:33] LABS: ANION GAP 9 MEQ/L (5-15); BICARBONATE 24.6 MEQ/L (21.0-32.0); BLOOD UREA NITROGEN 10 MG/DL (7-18); CHLORIDE 102 MEQ/L (98-107); GLOMERULAR FILTRATION RATE 123 ML/MIN (>89); LDH SERUM 402 U/L (87-241); POTASSIUM 3.6 MEQ/L (3.5-5.1); SODIUM (NA) 136 MEQ/L (136-145)
[2016-12-13 05:51] LABS: FERRITIN 654 NG/ML (26-388); TRANSFERRIN IRON PROFILE 177 MG/DL (200-360)
[2016-12-13] MEDS ORDERED: CALCIUM GLUCONATE 10% 1 GM/10 ML VIAL IV PUSH ONE (06:30)
[2016-12-13] MEDS ORDERED: CALCIUM GLUCONATE INJ 1 GM in SODIUM CHLORIDE 0.9% INJ 100 ML IV ONE (07:30)
[2016-12-13 07:48] LABS: BANDS 11 % (0-6); METAMYELOCYTES 1 % (0-1); NEUTROPHIL # MANUAL DIFF 3.1 TH/MM3 (1.8-7.7); POLYS (SEG NEUTROPHILS) 77 % (16-70); WBC DIFF SAMPLE 100
[2016-12-13 07:52] LABS: OVALOCYTES 1+ (NORMAL)
[2016-12-13 07:53] LABS: PLATELET ESTIMATE SMEAR NORMAL (NORMAL); PLATELET MORPHOLOGY NORMAL (NORMAL); SCAN/DIFF FINAL DIFF MANUAL
[2016-12-13 08:00] VITALS: BP 124/58; PULSE 95; RESP 16; TEMP 98.6; O2SAT 93
[2016-12-13] MEDS: SODIUM CHLORIDE 0.9% FLUSH 10 ML FLUSH IV FLUSH SCH ×2 (09:00→21:00)
--- NOTE | 2016-12-13 09:34 | HHI.PR ---
Subjective Remarks Follow-up pneumonia and odynophagia. Still with coughing but no chest pain awaiting EGD. Discussed with RN Objective Vitals Vital Signs Date Time Temp Pulse Resp B/P Pulse Ox O2 Delivery O2 Flow Rate FiO2 12/13/16 08:00 98.6 95 16 124/58 93 12/13/16 04:00 98.2 79 17 110/60 95 12/13/16 00:00 99.5 98 17 107/54 95 12/12/16 20:23 98.6 96 17 116/57 95 12/12/16 19:33 19 96 Room Air 12/12/16 19:33 104 19 127/58 96 Room Air 12/12/16 17:00 104 24 120/74 99 Room Air 12/12/16 16:40 95 21 12/12/16 10:55 Room Air 12/12/16 10:36 112 21 125/60 95 12/12/16 10:24 98.1 118 16 145/60 97 I/O 12/12/16 12/12/16 12/12/16 12/13/16 12/13/16 12/13/16 07:00 15:00 23:00 07:00 15:00 23:00 Intake Total 860 ml 2358 ml Output Total 400 ml Balance 860 ml 1958 ml Intake Oral 560 ml 240 ml IV Total 300 ml 1059 ml Packed Cells 1059 ml Output Urine Total 400 ml # Voids 2 Result Diagram: 12/13/16 0414 12/13/16 0414 Imaging Last Impressions Chest X-Ray 12/12/16 1053 Signed Impressions: Service Date/Time: Monday, December 12, 2016 10:57 - CONCLUSION: 1. No acute cardiopulmonary disease. Aakash Bill MD CT Angiography 12/12/16 1053 Signed Impressions: Service Date/Time: Monday, December 12, 2016 12:40 - CONCLUSION: 1. No pulmonary embolus. 2. Multiple patchy areas of faint opacities seen throughout the lungs likely representing areas of atelectasis or interstitial consolidation. There are some more focal areas of more prominent atelectasis or consolidation seen on the right middle lobe and the posterior lower lobes bilaterally. 3. 5 mm non-specific pulmonary nodule in the right lower lobe, this does appear smooth. Given the patient age this likely represents a non-calcified granuloma. It could be followed up with a noncontrast CT examination in one year. Kai Prescott MD Abdomen/Pelvis CT 12/12/16 1053 Signed Impressions: Service Date/Time: Monday, December 12, 2016 12:40 - CONCLUSION: 1. Postsurgical features of prior appendectomy. 2. No CT findings to explain patient's abdominal pain. 3. Unremarkable CT examination of the abdomen and pelvis. Aakash Bill MD Objective Remarks GENERAL: This is a well-nourished, well-developed patient, in no apparent distress. SKIN: No rashes, ecchymoses or lesions. Cool and dry. HEAD: Atraumatic. Normocephalic. No temporal or scalp tenderness. EYES: Pupils equal round and reactive. Extraocular motions intact. No scleral icterus. No injection or drainage. ENT: Nose without bleeding, purulent drainage or septal hematoma. Throat without erythema, tonsillar hypertrophy or exudate. Uvula midline. Airway patent. NECK: Trachea midline. No JVD or lymphadenopathy. Supple, nontender, no meningeal signs. CARDIOVASCULAR: Regular rate and rhythm without murmurs, gallops, or rubs. RESPIRATORY: Clear to auscultation. Breath sounds equal bilaterally. No wheezes , rales, or rhonchi. GASTROINTESTINAL: Abdomen soft, non-tender, nondistended. No guarding. MUSCULOSKELETAL: Extremities without clubbing, cyanosis, or edema. No joint tenderness, effusion, or edema noted. No calf tenderness. Negative Homans sign bilaterally. NEUROLOGICAL: Awake and alert. Cranial nerves II through XII intact. Motor and sensory grossly within normal limits. Five out of 5 muscle strength in all muscle groups. Normal speech. Procedures none A/P Problem List: (1) Pneumonia ICD Code: J18.9 Status: Acute (2) Atypical chest pain ICD Code: R07.89 Status: Acute Assessment and Plan This is a 26-year-old male who presents to the emergency department because of worsening chest pain. Started about 6 months ago he developed nonproductive cough. States he was prescribed Z-Placido 5 months ago by his PCP with partial temporary improvement of his symptoms. It is associated with transient fever and night sweats. He also reports of weight loss of 30 pounds denies anorexia. He was again treated with the same antibiotic 3 months ago with similar results. No TB exposure but works in a [employer]. For the past week he has complained of intermittent pleuritic retrosternal sharp pain worse with coughing and eating. He also notes of odynophagia. In the emergency department , tested positive for HIV pending confirmatory test. CTA no PE but was abnormal showing multiple patchy areas of faint opacity seen throughout the lungs likely representing areas of atelectasis or interstitial consolidation. There are some more focal areas of more prominent atelectasis or consolidation seen on the right middle lobe in the posterior lower lobes bilaterally. He has been recommended admission for further evaluation and treatment for possible PCP. Denies risk factors for HIV. He also meets criteria for sepsis. Pneumonia. Suspect PCP with a preliminary positive HIV test. CTA with no pulmonary embolus but shows multiple patchy areas of faint opacity seen throughout the lungs likely representing areas of atelectasis or interstitial consolidation. There are some more focal areas of more prominent atelectasis or consolidation seen on the right middle lobe in the posterior lower lobes bilaterally. Elevated LDH. Continue Bactrim IV and consider prednisone if worse. Follow-up sputum and urinary pneumococcal and Legionella antigen. Sepsis. Lactic acid within normal limits Atypical chest pain secondary to above. EKG with sinus tachycardia. CTA negative for PE Pulmonary nodule in the right lower lobe. Follow-up noncontrast CT in 1 year Odynophagia with epigastric tenderness. Lipase within normal limits. PPI. For endoscopy today Weight loss likely related to above. TSH WNL Mild AST elevation with history of enlarged liver. Outpatient follow-up Normocytic normochromic anemia. Guaiac stool. For endoscopy. Monitor History of neuropathy. Continue Neurontin Low risk for DVT Discharge Planning Not ready for discharge Problem Qualifiers (1) Pneumonia: Qualified Code: J18.9 - Pneumonia of both lungs due to infectious organism, unspecified part of lung Gama Suarez MD Dec 13, 2016 09:34
[2016-12-13 12:00] VITALS: BP 114/59; PULSE 102; RESP 16; TEMP 100.3; O2SAT 92
[2016-12-13] MEDS: GABAPENTIN 300 MG CAP PO SCH ×2 (13:00→16:56)
--- NOTE | 2016-12-13 14:24 | HHI.IDPN ---
Note Infectious Disease Note Patient feels okay. Notes vomiting up clear fluid. Occasional cough. Afebrile. No chest pain. Presented to the emergency department because of chest pain and SOB. Has had cough for 6 months. PAST MEDICAL HISTORY Appendectomy. ALLERGIES PENICILLIN LEVAQUIN ANTIBIOTICS: Bactrim IV SOCIAL HISTORY No tobacco, alcohol or illicit drugs. Vital Signs Date Time Temp Pulse Resp B/P Pulse Ox O2 Delivery O2 Flow Rate FiO2 12/13/16 12:00 100.3 102 16 114/59 92 12/13/16 08:00 98.6 95 16 124/58 93 12/13/16 04:00 98.2 79 17 110/60 95 12/13/16 00:00 99.5 98 17 107/54 95 12/12/16 20:23 98.6 96 17 116/57 95 12/12/16 19:33 19 96 Room Air 12/12/16 19:33 104 19 127/58 96 Room Air 12/12/16 17:00 104 24 120/74 99 Room Air 12/12/16 16:40 95 21 12/12/16 12/12/16 12/13/16 15:00 23:00 07:00 Intake Total 860 ml 2358 ml Output Total 400 ml Balance 860 ml 1958 ml Intake Oral 560 ml 240 ml IV Total 300 ml 1059 ml Packed Cells 1059 ml Output Urine Total 400 ml # Voids 2 Laboratory Tests Test 12/12/16 12/13/16 11:00 04:14 White Blood Count 5.5 TH/MM3 3.5 TH/MM3 Red Blood Count 3.61 MIL/MM3 3.45 MIL/MM3 Hemoglobin 10.0 GM/DL 9.4 GM/DL Hematocrit 30.4 % 29.2 % Mean Corpuscular Volume 84.0 FL 84.6 FL Mean Corpuscular Hemoglobin 27.8 PG 27.3 PG Mean Corpuscular Hemoglobin 33.0 % 32.3 % Concent Red Cell Distribution Width 16.4 % 16.7 % Platelet Count 266 TH/MM3 247 TH/MM3 Mean Platelet Volume 8.4 FL 8.6 FL Neutrophils (%) (Auto) 69.2 % 63.4 % Lymphocytes (%) (Auto) 20.6 % 25.2 % Monocytes (%) (Auto) 9.0 % 10.5 % Eosinophils (%) (Auto) 0.3 % 0.3 % Basophils (%) (Auto) 0.9 % 0.6 % Neutrophils # (Auto) 3.8 TH/MM3 2.2 TH/MM3 Lymphocytes # (Auto) 1.1 TH/MM3 0.9 TH/MM3 Monocytes # (Auto) 0.5 TH/MM3 0.4 TH/MM3 Eosinophils # (Auto) 0.0 TH/MM3 0.0 TH/MM3 Basophils # (Auto) 0.1 TH/MM3 0.0 TH/MM3 CBC Comment AUTO DIFF AUTO DIFF Differential Total Cells 100 100 Counted Neutrophils % (Manual) 63 % 77 % Band Neutrophils % 15 % 11 % Lymphocytes % 16 % 7 % Monocytes % 6 % 4 % Neutrophils # (Manual) 4.3 TH/MM3 3.1 TH/MM3 Differential Comment FINAL DIFF FINAL DIFF MANUAL MANUAL Platelet Estimate NORMAL NORMAL Platelet Morphology Comment NORMAL NORMAL Red Cell Morphology Comment NORMAL Metamyelocytes 1 % Ovalocytes 1+ Laboratory Tests Test 12/12/16 12/12/16 12/13/16 11:00 16:31 04:14 Sodium Level 139 MEQ/L 136 MEQ/L Potassium Level 3.9 MEQ/L 3.6 MEQ/L Chloride Level 106 MEQ/L 102 MEQ/L Carbon Dioxide Level 24.8 MEQ/L 24.6 MEQ/L Anion Gap 8 MEQ/L 9 MEQ/L Blood Urea Nitrogen 14 MG/DL 10 MG/DL Creatinine 0.95 MG/DL 0.91 MG/DL Estimat Glomerular Filtration 117 ML/MIN 123 ML/MIN Rate Random Glucose 70 MG/DL 74 MG/DL Calcium Level 8.1 MG/DL 7.3 MG/DL Total Bilirubin 0.5 MG/DL Aspartate Amino Transf 46 U/L (AST/SGOT) Alanine Aminotransferase 35 U/L (ALT/SGPT) Alkaline Phosphatase 63 U/L Lactate Dehydrogenase 660 U/L 402 U/L Total Creatine Kinase 358 U/L Creatine Kinase MB 1.5 NG/ML Creatine Kinase MB % 0.4 % Troponin I LESS THAN 0.02 NG/ML B-Type Natriuretic Peptide 17 PG/ML Total Protein 8.7 GM/DL 7.8 GM/DL Albumin 3.3 GM/DL Lipase 200 U/L Thyroid Stimulating Hormone 1.150 uIU/ML 3rd Gen Lactic Acid Level 0.8 mmol/L Protein Corrected Calcium 7.0 MG/DL Iron Level 31 MCG/DL Total Iron Binding Capacity 248 MCG/DL Percent Iron Saturation 12.5 % Ferritin 654 NG/ML PHYSICAL EXAMINATION: GEN: No acute distress. He is awake, alert and oriented. HEENT: No icterus. Oropharynx, no visible lesions. NECK: Supple without adenopathy. Lungs: Clear breath sounds. Heart: Regular rate and rhythm without murmurs, rubs or gallops. Abdomen: Bowel sounds present, soft, nontender. No hepatosplenomegaly. Extremities: No clubbing, cyanosis or edema. The patient has erosion of both nail beds at the great toe, left and right. Skin: Skin is dry and has a faint hyperemic discoloration at the tibias. No diffuse rash. Neuro: Strength 4/5 at the left upper and left lower extremity, otherwise, no gross focal findings. Psych: Calm and cooperative. IMPRESSION 1. Immunosuppression secondary to HIV disease likely with positive preliminary HIV test. 2. Pneumonia, probably opportunistic versus viral. Likely PJP. RECOMMENDATIONS Continue Bactrim, change to PO. Follow HIV test Obtain sputum for culture if possible. Repeat CXR in Am. Marlon Paige MD Dec 13, 2016 14:24
[2016-12-13] MEDS ORDERED: PROPOFOL 200 MG/20 ML AMP IV ONE (15:42)
[2016-12-13 16:00] VITALS: BP 123/56; PULSE 95; RESP 17; TEMP 98.6; O2SAT 92
[2016-12-13] MEDS ORDERED: DO NOT ADM ANY ANTICOAGULANT DRUGS PRN (16:04)
--- NOTE | 2016-12-13 16:07 | HHI.GIFU ---
Subjective Remarks Immediate postop note: EGD with biopsy Indication: Odynophagia Meds: GET anesthesia Findings: Esophagus: typical candidal coating of mid to lower esophagus. Biopsies taken Stomach: mild gastritis. Bx taken duodenum: normal Objective Vitals I&O Vital Signs Date Time Temp Pulse Resp B/P Pulse Ox O2 Delivery O2 Flow Rate FiO2 12/13/16 12:00 100.3 102 16 114/59 92 12/13/16 08:00 98.6 95 16 124/58 93 12/13/16 04:00 98.2 79 17 110/60 95 12/13/16 00:00 99.5 98 17 107/54 95 12/12/16 20:23 98.6 96 17 116/57 95 12/12/16 19:33 19 96 Room Air 12/12/16 19:33 104 19 127/58 96 Room Air 12/12/16 17:00 104 24 120/74 99 Room Air 12/12/16 16:40 95 21 I/O 12/12/16 12/12/16 12/12/16 12/13/16 12/13/16 12/13/16 07:00 15:00 23:00 07:00 15:00 23:00 Intake Total 860 ml 2358 ml 0 ml Output Total 400 ml 800 ml Balance 860 ml 1958 ml -800 ml Intake Oral 560 ml 240 ml 0 ml IV Total 300 ml 1059 ml Packed Cells 1059 ml Output Urine Total 400 ml 800 ml # Voids 2 # Bowel Movements 0 Laboratory Laboratory Tests Test 12/12/16 12/12/16 12/13/16 16:28 16:31 04:14 Blood Gas Puncture Site RT RADIAL Blood Gas Patient Temperature 98.6 Blood Gas HCO3 23 Blood Gas Base Excess 0.0 Blood Gas Oxygen Saturation 93 Arterial Blood pH 7.46 Arterial Blood Partial 34 Pressure CO2 Arterial Blood Partial 73 Pressure O2 Arterial Blood Oxygen Content 13.9 Arterial Blood 1.2 Carboxyhemoglobin Arterial Blood Methemoglobin 0.5 Blood Gas Hemoglobin 10.6 Blood Gas Inspired Oxygen 21 Lactic Acid Level 0.8 White Blood Count 3.5 Red Blood Count 3.45 Hemoglobin 9.4 Hematocrit 29.2 Mean Corpuscular Volume 84.6 Mean Corpuscular Hemoglobin 27.3 Mean Corpuscular Hemoglobin 32.3 Concent Red Cell Distribution Width 16.7 Platelet Count 247 Mean Platelet Volume 8.6 Neutrophils (%) (Auto) 63.4 Lymphocytes (%) (Auto) 25.2 Monocytes (%) (Auto) 10.5 Eosinophils (%) (Auto) 0.3 Basophils (%) (Auto) 0.6 Neutrophils # (Auto) 2.2 Lymphocytes # (Auto) 0.9 Monocytes # (Auto) 0.4 Eosinophils # (Auto) 0.0 Basophils # (Auto) 0.0 CBC Comment AUTO DIFF Differential Total Cells 100 Counted Neutrophils % (Manual) 77 Band Neutrophils % 11 Lymphocytes % 7 Monocytes % 4 Neutrophils # (Manual) 3.1 Metamyelocytes 1 Differential Comment FINAL DIFF MANUAL Platelet Estimate NORMAL Platelet Morphology Comment NORMAL Ovalocytes 1+ Sodium Level 136 Potassium Level 3.6 Chloride Level 102 Carbon Dioxide Level 24.6 Anion Gap 9 Blood Urea Nitrogen 10 Creatinine 0.91 Estimat Glomerular Filtration 123 Rate Random Glucose 74 Calcium Level 7.3 Protein Corrected Calcium 7.0 Iron Level 31 Total Iron Binding Capacity 248 Percent Iron Saturation 12.5 Ferritin 654 Lactate Dehydrogenase 402 Total Protein 7.8 Hepatitis A IgM Antibody NEGATIVE Hepatitis B Surface Antigen NEGATIVE Hepatitis B Core IgM Antibody NEGATIVE Hepatitis C Antibody NEGATIVE Physical Exam HEENT: Pupils round and reactive to light; normocephalic; atraumatic; no jaundice. Throat is clear. NECK: Neck is supple, no JVD, no lymphadenopathy. CHEST: Chest is clear to auscultation and percussion. CARDIAC: Regular rate and rhythm with no murmur gallop or rubs. ABDOMEN: Soft, nondistended, nontender; no hepatosplenomegaly; bowel sounds are present in all four quadrants. EXTREMITIES: No clubbing, cyanosis, or edema. SKIN: Normal; no rash; no jaundice. 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 Assessment and Plan Plan ASSESSMENT - odynophagia - onset 2.5 weeks ago, hx 2 x zpacks in the last couple weeks. Mid sternal pain swallowing solid food. could be rhianna - weight loss - 30 lbs in 6m. unclear etiology - isolated elevation AST - rare ETOH consumptions. RUQ pain. Pt claims hx enlarged liver, CT unremarkable. iron studies pending. Will do hep panel, US - anemia - Hgb 10.0 on admission. hemoccult pending. - HIV - pos initial test, confirmatory test pending - PNA - per primary - sepsis - per primary EGD 12/13 showed Typical findings of Rhianna esophagitis. biopsies taken. Gastritis, biopsy taken. PLAN - DOUG - hepatitis panel - await guiac - Await biopsy result Pola Loya MD Dec 13, 2016 16:07
[2016-12-13] MEDS ORDERED: PANT40TA3 PO (16:34)
[2016-12-13] MEDS ORDERED: SULF1TAB23 PO (16:34)
--- NOTE | 2016-12-13 16:34 | HHI.DCPOC ---
Discharge Care Plan Your Health Problems Are: Difficulty with ADL Exercise Tolerance Goals to Promote Your Health * To prevent worsening of your condition and complications * To maintain your health at the optimal level Directions to Meet Your Goals Take your medications as prescribed Follow your dietary instruction Follow activity as directed Keep your appointments as scheduled Take your immunizations and boosters as scheduled If your symptoms worsen call your PCP, if no PCP go to Urgent Care Center or Emergency Room Smoking is Dangerous to Your Health. Avoid second hand smoke Call the 24-hour hour crisis hotline for domestic abuse at Gama Suarez MD Dec 13, 2016 16:34
[2016-12-13] MEDS: guaiFENesin E.R. 600 MG TAB PO SCH ×2 (16:56→21:05)
[2016-12-13] MEDS: DOCUSATE SODIUM 50 MG/SENNA 8.6 MG TAB PO SCH ×2 (16:56→21:05)
[2016-12-13] MEDS: PANTOPRAZOLE SOD 40 MG DELAYED RELEASE TAB PO SCH (16:56)
[2016-12-13] MEDS: CALCIUM CARBONATE 1.25 GM (CA 500 MG) TAB PO SCH ×2 (16:59→21:05)
[2016-12-13] MEDS: SULFAMETHOXAZOLE-TRIMETHOPRIM DS 800-160 MG TAB PO SCH ×2 (16:59→22:34)
[2016-12-13 17:49] LABS: HIV 1 AB DIFFERENTIATION Positive (Negative); HIV 1/2 AG AND AB SCREEN Reactive (Negative); HIV 2 AB DIFFERENTIATION Negative (Negative)
[2016-12-13 20:00] VITALS: BP 117/58; PULSE 101; PULSE 102; RESP 17; TEMP 99.8; O2SAT 94
[2016-12-14] VITALS (8 sets, daily range): BP systolic 115–126; BP diastolic 56–64; PULSE 90–107; RESP 16–19; TEMP 98.2–100.6; O2SAT 90–97
[2016-12-14 05:24] LABS: AUTOMATED NEUTROPHIL # 2.5 TH/MM3 (1.8-7.7); BASOPHIL % 0.2 % (0.0-2.0); EOSINOPHIL % 0.1 % (0.0-4.0); HEMATOCRIT 27.9 % (39.0-51.0); LYMPH % 27.2 % (9.0-44.0); LYMPHOCYTE # 1.1 TH/MM3 (1.0-4.8); MEAN CELL VOLUME 84.5 FL (80.0-100.0); MEAN CORPUSCULAR HEMOGLOBIN 27.7 PG (27.0-34.0); MEAN CORPUSCULAR HGB CONC 32.8 % (32.0-36.0); MONO % 8.2 % (0.0-8.0); NEUT % 64.3 % (16.0-70.0); PLATELET COUNT 246 TH/MM3 (150-450); RED CELL DISTRIBUTION WIDTH 16.4 % (11.6-17.2); WHITE BLOOD COUNT 3.9 TH/MM3 (4.0-11.0)
[2016-12-14 05:34] LABS: HEMO FLAGS AUTO DIFF
[2016-12-14 05:41] LABS: BICARBONATE 24.4 MEQ/L (21.0-32.0); MAGNESIUM 2.1 MG/DL (1.5-2.5); POTASSIUM 4.1 MEQ/L (3.5-5.1)
[2016-12-14] MEDS: SULFAMETHOXAZOLE-TRIMETHOPRIM DS 800-160 MG TAB PO SCH ×3 (06:19→22:45)
--- NOTE | 2016-12-14 06:39 | RADRPT ---
EXAM DATE/TIME: 12/14/2016 06:29 [place] COMPARISON: CT PULMONARY ANGIOGRAM, December 12, 2016, 12:40. INDICATIONS : Shortness of breath, chest pain MEDICAL HISTORY : None. SURGICAL HISTORY : None. ENCOUNTER: Subsequent ACUITY: 3 days PAIN SCORE: 5/10 LOCATION: Bilateral chest FINDINGS: Trace atelectasis seen at the left base. No pleural effusion. No pneumothorax. Heart size stable, wit hin normal limits. CONCLUSION: Trace left base atelectasis. Kai Downing MD on December 14, 2016 at 6:37 Board Certified Radiologist. This report was verified electronically.
[2016-12-14 07:39] LABS: BANDS 9 % (0-6); METAMYELOCYTES 5 % (0-1); NEUTROPHIL # MANUAL DIFF 2.9 TH/MM3 (1.8-7.7); POLYS (SEG NEUTROPHILS) 60 % (16-70); WBC DIFF SAMPLE 100
[2016-12-14 07:40] LABS: PLATELET ESTIMATE SMEAR NORMAL (NORMAL); PLATELET MORPHOLOGY ENLARGED (NORMAL)
[2016-12-14 07:41] LABS: SCAN/DIFF FINAL DIFF MANUAL
[2016-12-14] MEDS: GABAPENTIN 300 MG CAP PO SCH ×3 (08:04→17:40)
[2016-12-14] MEDS: guaiFENesin E.R. 600 MG TAB PO SCH ×2 (08:05→19:32)
[2016-12-14] MEDS: CALCIUM CARBONATE 1.25 GM (CA 500 MG) TAB PO SCH ×2 (08:05→19:32)
[2016-12-14] MEDS: PANTOPRAZOLE SOD 40 MG DELAYED RELEASE TAB PO SCH (08:05)
[2016-12-14] MEDS: SODIUM CHLOR 0.9% 1000 ML INJ 1,000 ML IV SCH (08:06)
[2016-12-14] MEDS: SODIUM CHLORIDE 0.9% FLUSH 10 ML FLUSH IV FLUSH SCH ×2 (08:06→19:35)
[2016-12-14] MEDS: DOCUSATE SODIUM 50 MG/SENNA 8.6 MG TAB PO SCH ×2 (08:06→19:33)
[2016-12-14] MEDS ORDERED: FLUCONAZOLE 200 MG TAB PO ONE (08:45)
[2016-12-14] MEDS ORDERED: DIFL100T PO (08:45)
--- NOTE | 2016-12-14 08:46 | HHI.PR ---
Subjective Remarks Follow-up esophagitis and pneumonia. Denies cough but has low-grade temperature of 100.6. Tolerating by mouth discussed with RN Objective Vitals Vital Signs Date Time Temp Pulse Resp B/P Pulse Ox O2 Delivery O2 Flow Rate FiO2 12/14/16 08:00 100.0 99 16 120/56 92 12/14/16 04:00 98.3 98 17 119/58 97 12/14/16 00:00 100.6 101 17 115/56 94 12/13/16 20:00 101 12/13/16 20:00 99.8 102 17 117/58 94 12/13/16 16:30 98.4 95 16 132/62 97 Room Air 12/13/16 16:15 95 16 122/64 97 Room Air 12/13/16 16:04 98.0 95 16 121/64 95 Nasal Cannula 2 12/13/16 16:00 98.6 95 17 123/56 92 12/13/16 12:00 100.3 102 16 114/59 92 I/O 12/13/16 12/13/16 12/13/16 12/14/16 12/14/16 12/14/16 07:00 15:00 23:00 07:00 15:00 23:00 Intake Total 2358 ml 0 ml 1045 ml 1022 ml Output Total 400 ml 800 ml 1150 ml 400 ml Balance 1958 ml -800 ml -105 ml 622 ml Intake Oral 240 ml 0 ml 240 ml 240 ml IV Total 1059 ml 605 ml 782 ml Packed Cells 1059 ml Other 200 ml Output Urine Total 400 ml 800 ml 1150 ml 400 ml # Bowel Movements 0 Result Diagram: 12/14/16 0446 12/14/16 0446 Objective Remarks GENERAL: This is a well-nourished, well-developed patient, in no apparent distress. SKIN: No rashes, ecchymoses or lesions. Cool and dry. HEAD: Atraumatic. Normocephalic. No temporal or scalp tenderness. EYES: Pupils equal round and reactive. Extraocular motions intact. No scleral icterus. No injection or drainage. ENT: Nose without bleeding, purulent drainage or septal hematoma. Throat without erythema, tonsillar hypertrophy or exudate. Uvula midline. Airway patent. NECK: Trachea midline. No JVD or lymphadenopathy. Supple, nontender, no meningeal signs. CARDIOVASCULAR: Regular rate and rhythm without murmurs, gallops, or rubs. RESPIRATORY: Clear to auscultation. Breath sounds equal bilaterally. No wheezes , rales, or rhonchi. GASTROINTESTINAL: Abdomen soft, non-tender, nondistended. No guarding. MUSCULOSKELETAL: Extremities without clubbing, cyanosis, or edema. No joint tenderness, effusion, or edema noted. No calf tenderness. Negative Homans sign bilaterally. NEUROLOGICAL: Awake and alert. Cranial nerves II through XII intact. Motor and sensory grossly within normal limits. Five out of 5 muscle strength in all muscle groups. Normal speech. Procedures EGD A/P Problem List: (1) Pneumonia ICD Code: J18.9 Status: Acute (2) Atypical chest pain ICD Code: R07.89 Status: Acute Assessment and Plan This is a 26-year-old male who presents to the emergency department because of worsening chest pain. Started about 6 months ago he developed nonproductive cough. States he was prescribed Z-Placido 5 months ago by his PCP with partial temporary improvement of his symptoms. It is associated with transient fever and night sweats. He also reports of weight loss of 30 pounds denies anorexia. He was again treated with the same antibiotic 3 months ago with similar results. 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 For the past week he has complained of intermittent pleuritic retrosternal sharp pain worse with coughing and eating. He also notes of odynophagia. In the emergency department , tested positive for HIV pending confirmatory test. CTA no PE but was abnormal showing multiple patchy areas of faint opacity seen throughout the lungs likely representing areas of atelectasis or interstitial consolidation. There are some more focal areas of more prominent atelectasis or consolidation seen on the right middle lobe in the posterior lower lobes bilaterally. He has been recommended admission for further evaluation and treatment for possible PCP. Denies risk factors for HIV. He also meets criteria for sepsis. Pneumonia. Suspect PCP with a preliminary positive HIV test. CTA with no pulmonary embolus but shows multiple patchy areas of faint opacity seen throughout the lungs likely representing areas of atelectasis or interstitial consolidation. There are some more focal areas of more prominent atelectasis or consolidation seen on the right middle lobe in the posterior lower lobes bilaterally. Elevated LDH. Continue Bactrim and consider prednisone if worse. Follow-up sputum and urinary pneumococcal and Legionella antigen. Walk test. Sepsis. Lactic acid within normal limits Atypical chest pain secondary to above and esophagitis. EKG with sinus tachycardia. CTA negative for PE Pulmonary nodule in the right lower lobe. Follow-up noncontrast CT in 1 year Odynophagia with epigastric tenderness. Lipase within normal limits. PPI. EGD shows esophagitis consistent with megan start Diflucan follow-up pathology Weight loss likely related to above. TSH WNL Mild AST elevation with history of enlarged liver. Outpatient follow-up Normocytic normochromic anemia. Guaiac stool. Monitor History of neuropathy. Continue Neurontin Low risk for DVT I spent 35 minutes [id number] with the patient or on the richey discussing the patient's disposition, prognosis, and plan of care with patient's caregivers. Over half the time spent was devoted to counseling the patient regarding care with caregivers Discharge Planning Not ready for discharge patient still with fever Problem Qualifiers (1) Pneumonia: Qualified Code: J18.9 - Pneumonia of both lungs due to infectious organism, unspecified part of lung Gama Suarez MD Dec 14, 2016 08:46
[2016-12-14] MEDS: RESP: ALBUTEROL 2.5 MG/3 ML NEB (PRN) NEB (12:14)
[2016-12-14] MEDS ORDERED: OXYGENDME NAS.CANULA (12:56)
--- NOTE | 2016-12-14 14:32 | HHI.GIFU ---
Subjective Remarks Pt sitting on edge of bed. Says he is eating okay and painful swallowing somewhat better. Objective Vitals I&O Vital Signs Date Time Temp Pulse Resp B/P Pulse Ox O2 Delivery O2 Flow Rate FiO2 12/14/16 14:09 2.00 12/14/16 12:17 92 12/14/16 12:00 100.4 107 17 126/64 90 12/14/16 08:00 100.0 99 16 120/56 92 12/14/16 04:00 98.3 98 17 119/58 97 12/14/16 00:00 100.6 101 17 115/56 94 12/13/16 20:00 101 12/13/16 20:00 99.8 102 17 117/58 94 12/13/16 16:30 98.4 95 16 132/62 97 Room Air 12/13/16 16:15 95 16 122/64 97 Room Air 12/13/16 16:04 98.0 95 16 121/64 95 Nasal Cannula 2 12/13/16 16:00 98.6 95 17 123/56 92 I/O 12/13/16 12/13/16 12/13/16 12/14/16 12/14/16 12/14/16 07:00 15:00 23:00 07:00 15:00 23:00 Intake Total 2358 ml 0 ml 1045 ml 1022 ml Output Total 400 ml 800 ml 1150 ml 400 ml Balance 1958 ml -800 ml -105 ml 622 ml Intake Oral 240 ml 0 ml 240 ml 240 ml IV Total 1059 ml 605 ml 782 ml Packed Cells 1059 ml Other 200 ml Output Urine Total 400 ml 800 ml 1150 ml 400 ml # Bowel Movements 0 Laboratory Laboratory Tests Test 12/14/16 04:46 White Blood Count 3.9 Red Blood Count 3.30 Hemoglobin 9.1 Hematocrit 27.9 Mean Corpuscular Volume 84.5 Mean Corpuscular Hemoglobin 27.7 Mean Corpuscular Hemoglobin 32.8 Concent Red Cell Distribution Width 16.4 Platelet Count 246 Mean Platelet Volume 8.6 Neutrophils (%) (Auto) 64.3 Lymphocytes (%) (Auto) 27.2 Monocytes (%) (Auto) 8.2 Eosinophils (%) (Auto) 0.1 Basophils (%) (Auto) 0.2 Neutrophils # (Auto) 2.5 Lymphocytes # (Auto) 1.1 Monocytes # (Auto) 0.3 Eosinophils # (Auto) 0.0 Basophils # (Auto) 0.0 CBC Comment AUTO DIFF Differential Total Cells 100 Counted Neutrophils % (Manual) 60 Band Neutrophils % 9 Lymphocytes % 19 Monocytes % 7 Neutrophils # (Manual) 2.9 Metamyelocytes 5 Differential Comment FINAL DIFF MANUAL Platelet Estimate NORMAL Platelet Morphology Comment ENLARGED Ovalocytes Sodium Level 138 Potassium Level 4.1 Chloride Level 106 Carbon Dioxide Level 24.4 Anion Gap 8 Blood Urea Nitrogen 9 Creatinine 1.03 Estimat Glomerular Filtration 107 Rate Random Glucose 83 Calcium Level 8.0 Magnesium Level 2.1 Imaging Last Impressions Chest X-Ray 12/14/16 0600 Signed Impressions: Service Date/Time: November 06:29 - CONCLUSION: Trace left base atelectasis. Kai Downing MD CT Angiography 12/12/16 1053 Signed Impressions: Service Date/Time: Monday, December 12, 2016 12:40 - CONCLUSION: 1. No pulmonary embolus. 2. Multiple patchy areas of faint opacities seen throughout the lungs likely representing areas of atelectasis or interstitial consolidation. There are some more focal areas of more prominent atelectasis or consolidation seen on the right middle lobe and the posterior lower lobes bilaterally. 3. 5 mm non-specific pulmonary nodule in the right lower lobe, this does appear smooth. Given the patient age this likely represents a non-calcified granuloma. It could be followed up with a noncontrast CT examination in one year. Kai Prescott MD Abdomen/Pelvis CT 12/12/16 1053 Signed Impressions: Service Date/Time: Monday, December 12, 2016 12:40 - CONCLUSION: 1. Postsurgical features of prior appendectomy. 2. No CT findings to explain patient's abdominal pain. 3. Unremarkable CT examination of the abdomen and pelvis. Aakash Bill MD Physical Exam HEENT: PERRL; normocephalic; atraumatic; no jaundice. CHEST: CTA CARDIAC: tachy ABDOMEN: Soft, nondistended, nontender; no hepatosplenomegaly; bowel sounds are present in all four quadrants. EXTREMITIES: No clubbing, cyanosis, or edema. SKIN: Normal; no rash; no jaundice. 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 Assessment and Plan Plan ASSESSMENT - odynophagia - onset 2.5 weeks ago, hx 2 x zpacks in the last couple weeks. Mid sternal pain swallowing solid food. could be megan - weight loss - 30 lbs in 6m. s/p EGD --> typical candidal coating esophagus - isolated elevation AST - rare ETOH consumptions. RUQ pain. Pt claims hx enlarged liver, CT unremarkable. iron studies pending. Hep panel neg. - anemia - Hgb 10.0 on admission. hemoccult pending. - HIV - pos initial test, confirmatory test HIV1. cell counts pending. - PNA - per primary - sepsis - per primary PLAN - DOUG - cont fluconazole - Await biopsy result This pt seen by myself and Dr Loya and this note is written on his behalf. Cata Joel Dec 14, 2016 14:32
--- NOTE | 2016-12-14 15:48 | HHI.IDPN ---
Note Infectious Disease Note Patient feels okay. Has low grade fever. Had SOB earlier. Improved with breathing treatment. Describes pain in the feet. Noted to have decreased O2 ambulatory sat. Presented to the emergency department because of chest pain and SOB. PAST MEDICAL HISTORY Appendectomy. ALLERGIES PENICILLIN LEVAQUIN ANTIBIOTICS: Bactrim PO SOCIAL HISTORY No tobacco, alcohol or illicit drugs. OBJECTIVE: Vital Signs Date Time Temp Pulse Resp B/P Pulse Ox O2 Delivery O2 Flow Rate FiO2 12/14/16 14:09 2.00 12/14/16 12:17 92 12/14/16 12:00 100.4 107 17 126/64 90 12/14/16 08:00 100.0 99 16 120/56 92 12/14/16 04:00 98.3 98 17 119/58 97 12/14/16 00:00 100.6 101 17 115/56 94 12/13/16 20:00 101 12/13/16 20:00 99.8 102 17 117/58 94 12/13/16 16:30 98.4 95 16 132/62 97 Room Air 12/13/16 16:15 95 16 122/64 97 Room Air 12/13/16 16:04 98.0 95 16 121/64 95 Nasal Cannula 2 12/13/16 16:00 98.6 95 17 123/56 92 12/13/16 12/13/16 12/14/16 15:00 23:00 07:00 Intake Total 0 ml 1045 ml 1022 ml Output Total 800 ml 1150 ml 400 ml Balance -800 ml -105 ml 622 ml Intake Oral 0 ml 240 ml 240 ml IV Total 605 ml 782 ml Other 200 ml Output Urine Total 800 ml 1150 ml 400 ml # Bowel Movements 0 Laboratory Tests Test 12/13/16 12/14/16 04:14 04:46 White Blood Count 3.5 TH/MM3 3.9 TH/MM3 Red Blood Count 3.45 MIL/MM3 3.30 MIL/MM3 Hemoglobin 9.4 GM/DL 9.1 GM/DL Hematocrit 29.2 % 27.9 % Mean Corpuscular Volume 84.6 FL 84.5 FL Mean Corpuscular Hemoglobin 27.3 PG 27.7 PG Mean Corpuscular Hemoglobin 32.3 % 32.8 % Concent Red Cell Distribution Width 16.7 % 16.4 % Platelet Count 247 TH/MM3 246 TH/MM3 Mean Platelet Volume 8.6 FL 8.6 FL Neutrophils (%) (Auto) 63.4 % 64.3 % Lymphocytes (%) (Auto) 25.2 % 27.2 % Monocytes (%) (Auto) 10.5 % 8.2 % Eosinophils (%) (Auto) 0.3 % 0.1 % Basophils (%) (Auto) 0.6 % 0.2 % Neutrophils # (Auto) 2.2 TH/MM3 2.5 TH/MM3 Lymphocytes # (Auto) 0.9 TH/MM3 1.1 TH/MM3 Monocytes # (Auto) 0.4 TH/MM3 0.3 TH/MM3 Eosinophils # (Auto) 0.0 TH/MM3 0.0 TH/MM3 Basophils # (Auto) 0.0 TH/MM3 0.0 TH/MM3 CBC Comment AUTO DIFF AUTO DIFF Differential Total Cells 100 100 Counted Neutrophils % (Manual) 77 % 60 % Band Neutrophils % 11 % 9 % Lymphocytes % 7 % 19 % Monocytes % 4 % 7 % Neutrophils # (Manual) 3.1 TH/MM3 2.9 TH/MM3 Metamyelocytes 1 % 5 % Differential Comment FINAL DIFF FINAL DIFF MANUAL MANUAL Platelet Estimate NORMAL NORMAL Platelet Morphology Comment NORMAL ENLARGED Ovalocytes 1+ Laboratory Tests Test 12/12/16 12/13/16 12/14/16 16:31 04:14 04:46 Lactic Acid Level 0.8 mmol/L Sodium Level 136 MEQ/L 138 MEQ/L Potassium Level 3.6 MEQ/L 4.1 MEQ/L Chloride Level 102 MEQ/L 106 MEQ/L Carbon Dioxide Level 24.6 MEQ/L 24.4 MEQ/L Anion Gap 9 MEQ/L 8 MEQ/L Blood Urea Nitrogen 10 MG/DL 9 MG/DL Creatinine 0.91 MG/DL 1.03 MG/DL Estimat Glomerular Filtration 123 ML/MIN 107 ML/MIN Rate Random Glucose 74 MG/DL 83 MG/DL Calcium Level 7.3 MG/DL 8.0 MG/DL Protein Corrected Calcium 7.0 MG/DL Iron Level 31 MCG/DL Total Iron Binding Capacity 248 MCG/DL Percent Iron Saturation 12.5 % Ferritin 654 NG/ML Lactate Dehydrogenase 402 U/L Total Protein 7.8 GM/DL Magnesium Level 2.1 MG/DL IMAGING: Chest X-Ray 12/14/16 0600 Signed Impressions: Service Date/Time: November 06:29 - CONCLUSION: Trace left base atelectasis. Kai Downing MD CT Angiography 12/12/16 1053 Signed Impressions: Service Date/Time: Monday, December 12, 2016 12:40 - CONCLUSION: 1. No pulmonary embolus. 2. Multiple patchy areas of faint opacities seen throughout the lungs likely representing areas of atelectasis or interstitial consolidation. There are some more focal areas of more prominent atelectasis or consolidation seen on the right middle lobe and the posterior lower lobes bilaterally. 3. 5 mm non-specific pulmonary nodule in the right lower lobe, this does appear smooth. Given the patient age this likely represents a non-calcified granuloma. It could be followed up with a noncontrast CT examination in one year. Kai Prescott MD Abdomen/Pelvis CT 12/12/16 1053 Signed Impressions: Service Date/Time: Monday, December 12, 2016 12:40 - CONCLUSION: 1. Postsurgical features of prior appendectomy. 2. No CT findings to explain patient's abdominal pain. 3. Unremarkable CT examination of the abdomen and pelvis. Aakash Bill MD PHYSICAL EXAMINATION: GEN: No acute distress. HEENT: No icterus. Oropharynx, no visible lesions. NECK: Supple without adenopathy. Lungs: Decreased BS at the bases. Heart: Regular rate and rhythm without murmurs, rubs or gallops. Abdomen: Bowel sounds present, soft, nontender. No hepatosplenomegaly. Extremities: No clubbing, cyanosis or edema. The patient has erosion of both nail beds at the great toe, left and right. Skin: Skin is dry and has a faint hyperemic discoloration at the tibias. No diffuse rash. Neuro: Strength 4/5 at the left upper and left lower extremity, otherwise, no gross focal findings. Psych: Calm and cooperative. IMPRESSION 1. Immunosuppression secondary to HIV disease.Confirmatory test positive. 2. Pneumonia, probably opportunistic versus viral. Likely PJP. 3. Fever. RECOMMENDATIONS Continue Bactrim PO. Monitor CD4 count. Monitor temp. Needs follow up at health [facility] for HIV care. Marlon Paige MD Dec 14, 2016 15:48
--- NOTE | 2016-12-14 16:24 | MP ---
cc: HEYDI LOYA FRANKLYN F. MD ABANDO,GAMA Hurst MD DATE OF SURGERY: 12/13/2016 PROCEDURE Esophagoduodenostomy with biopsy. INDICATION Odynophagia. REFERRING PHYSICIAN Dr. Gama Suarez. PROCEDURE IN DETAIL After informed consent was obtained, the patient was placed in the supine position. Endotracheal anesthesia was administered because the patient had vomited recently. After adequate sedation was achieved, the Pentax video gastroscope was inserted in the oropharynx and advanced to the esophagus into the stomach and into the duodenum. It was then withdrawn slowly examining the mucosal surfaces carefully. Biopsies were obtained in the gastric antrum. Retroflexed examination was performed in the fundus and cardia and the stomach. The scope was then straightened and pulled through the esophagus where in the distal esophagus biopsies were obtained of what clearly appeared to be Rhianna esophagitis. The scope was then withdrawn out the mouth and the procedure was terminated. He was extubated and returned to the recovery area in good condition. FINDINGS 1. The esophagus had typical exudates of Rhianna esophagitis in the [id number] esophagus, biopsies were obtained. 2. In the stomach, there was mild gastritis and a biopsy was obtained. 3. The duodenum was normal. IMPRESSION 1. Rhianna esophagitis. 2. Gastritis. PLAN 1. We will await the biopsy result. 2. We will allow him to have diet as tolerated and await further lab testing. Heydi Loya MD [facility] /4:15 PM /4:09 PM
[2016-12-14 23:51] LABS: CD4/CD8 RATIO 0.1 (0.86-5.00)
[2016-12-15] VITALS: BP 124/62; PULSE 97; RESP 19; TEMP 99.1; O2SAT 97
[2016-12-15] MEDS: SULFAMETHOXAZOLE-TRIMETHOPRIM DS 800-160 MG TAB PO SCH ×2 (07:03→16:38)
[2016-12-15] MEDS: guaiFENesin E.R. 600 MG TAB PO SCH (07:29)
[2016-12-15] MEDS: PANTOPRAZOLE SOD 40 MG DELAYED RELEASE TAB PO SCH (07:29)
[2016-12-15] MEDS: GABAPENTIN 300 MG CAP PO SCH ×3 (07:29→16:37)
[2016-12-15] MEDS: CALCIUM CARBONATE 1.25 GM (CA 500 MG) TAB PO SCH (07:30)
[2016-12-15] MEDS: SODIUM CHLORIDE 0.9% FLUSH 10 ML FLUSH IV FLUSH SCH (07:30)
[2016-12-15] MEDS: DOCUSATE SODIUM 50 MG/SENNA 8.6 MG TAB PO SCH (07:30)
[2016-12-15 08:00] VITALS: BP 120/60; PULSE 100; PULSE 98; RESP 29; TEMP 100.1; O2SAT 89
[2016-12-15] MEDS ORDERED: FLUCONAZOLE 100 MG TAB PO SCH (09:00)
--- NOTE | 2016-12-15 09:30 | HHI.PR ---
Subjective Remarks Follow-up AIDS and PCP. MAXIMUM TEMPERATURE 100.1 CD4 82 patient already on Bactrim DS 2 tabs every 8 for PCP treatment will need prophylaxis for PCP and toxoplasmosis. Patient understands. Still on oxygen, discussed with RN to repeat walk test. Discussed with IDalonso for discharge Objective Vitals Vital Signs Date Time Temp Pulse Resp B/P Pulse Ox O2 Delivery O2 Flow Rate FiO2 12/15/16 08:00 98 12/15/16 08:00 100.1 100 29 120/60 89 12/15/16 08:00 Nasal Cannula 2.00 12/15/16 00:00 99.1 97 19 124/62 97 12/14/16 20:03 94 12/14/16 20:00 98.2 90 19 120/60 93 12/14/16 19:31 93 Nasal Cannula 2.00 12/14/16 16:00 98.3 97 17 126/64 92 12/14/16 14:09 2.00 12/14/16 12:17 92 12/14/16 12:00 100.4 107 17 126/64 90 I/O 12/14/16 12/14/16 12/14/16 12/15/16 12/15/16 12/15/16 07:00 15:00 23:00 07:00 15:00 23:00 Intake Total 1022 ml 2107 ml 240 ml 240 ml Output Total 400 ml 1825 ml 800 ml 1100 ml Balance 622 ml 282 ml -560 ml -860 ml Intake Oral 240 ml 1200 ml 240 ml 240 ml IV Total 782 ml 907 ml Output Urine Total 400 ml 1825 ml 800 ml 1100 ml # Bowel Movements 0 0 0 Result Diagram: 12/14/16 0446 12/14/16 0446 Imaging Last Impressions Chest X-Ray 12/14/16 0600 Signed Impressions: Service Date/Time: November 06:29 - CONCLUSION: Trace left base atelectasis. Kai Downing MD CT Angiography 12/12/16 1053 Signed Impressions: Service Date/Time: Monday, December 12, 2016 12:40 - CONCLUSION: 1. No pulmonary embolus. 2. Multiple patchy areas of faint opacities seen throughout the lungs likely representing areas of atelectasis or interstitial consolidation. There are some more focal areas of more prominent atelectasis or consolidation seen on the right middle lobe and the posterior lower lobes bilaterally. 3. 5 mm non-specific pulmonary nodule in the right lower lobe, this does appear smooth. Given the patient age this likely represents a non-calcified granuloma. It could be followed up with a noncontrast CT examination in one year. Kai Prescott MD Abdomen/Pelvis CT 12/12/16 1053 Signed Impressions: Service Date/Time: Monday, December 12, 2016 12:40 - CONCLUSION: 1. Postsurgical features of prior appendectomy. 2. No CT findings to explain patient's abdominal pain. 3. Unremarkable CT examination of the abdomen and pelvis. Aakash Bill MD Objective Remarks GENERAL: This is a well-nourished, well-developed patient, in no apparent distress. SKIN: No rashes, ecchymoses or lesions. Cool and dry. HEAD: Atraumatic. Normocephalic. No temporal or scalp tenderness. EYES: Pupils equal round and reactive. Extraocular motions intact. No scleral icterus. No injection or drainage. ENT: Nose without bleeding, purulent drainage or septal hematoma. Throat without erythema, tonsillar hypertrophy or exudate. Uvula midline. Airway patent. NECK: Trachea midline. No JVD or lymphadenopathy. Supple, nontender, no meningeal signs. CARDIOVASCULAR: Regular rate and rhythm without murmurs, gallops, or rubs. RESPIRATORY: Clear to auscultation. Breath sounds equal bilaterally. No wheezes , rales, or rhonchi. GASTROINTESTINAL: Abdomen soft, non-tender, nondistended. No guarding. MUSCULOSKELETAL: Extremities without clubbing, cyanosis, or edema. No joint tenderness, effusion, or edema noted. No calf tenderness. Negative Homans sign bilaterally. NEUROLOGICAL: Awake and alert. Cranial nerves II through XII intact. Motor and sensory grossly within normal limits. Five out of 5 muscle strength in all muscle groups. Normal speech. Procedures EGD A/P Problem List: (1) Pneumonia ICD Code: J18.9 Status: Acute (2) Atypical chest pain ICD Code: R07.89 Status: Acute Assessment and Plan This is a 26-year-old male who presents to the emergency department because of worsening chest pain. Started about 6 months ago he developed nonproductive cough. States he was prescribed Z-Placido 5 months ago by his PCP with partial temporary improvement of his symptoms. It is associated with transient fever and night sweats. He also reports of weight loss of 30 pounds denies anorexia. He was again treated with the same antibiotic 3 months ago with similar results. No TB exposure but works in a [employer]. For the past week he has complained of intermittent pleuritic retrosternal sharp pain worse with coughing and eating. He also notes of odynophagia. In the emergency department , tested positive for HIV pending confirmatory test. CTA no PE but was abnormal showing multiple patchy areas of faint opacity seen throughout the lungs likely representing areas of atelectasis or interstitial consolidation. There are some more focal areas of more prominent atelectasis or consolidation seen on the right middle lobe in the posterior lower lobes bilaterally. He has been recommended admission for further evaluation and treatment for possible PCP. Denies risk factors for HIV. He also meets criteria for sepsis. Pneumonia. Suspect PCP with a preliminary positive HIV test. CTA with no pulmonary embolus but shows multiple patchy areas of faint opacity seen throughout the lungs likely representing areas of atelectasis or interstitial consolidation. There are some more focal areas of more prominent atelectasis or consolidation seen on the right middle lobe in the posterior lower lobes bilaterally. Elevated LDH. Continue Bactrim and consider prednisone if worse. Follow-up sputum and urinary pneumococcal and Legionella antigen. Failed Walk test will need home oxygen. Sepsis. Lactic acid within normal limits Atypical chest pain secondary to above and esophagitis. EKG with sinus tachycardia. CTA negative for PE Pulmonary nodule in the right lower lobe. Follow-up noncontrast CT in 1 year Odynophagia with epigastric tenderness. Lipase within normal limits. EGD shows esophagitis consistent with megan continue Diflucan. Patient also has gastritis continue PPI and follow-up pathology Weight loss likely related to above. TSH WNL Mild AST elevation with history of enlarged liver. Outpatient follow-up Normocytic normochromic anemia. Guaiac stool. Monitor History of neuropathy. Continue Neurontin Low risk for DVT Discharge Planning Cleared for discharge by ID but will repeat walk test. Problem Qualifiers (1) Pneumonia: Qualified Code: J18.9 - Pneumonia of both lungs due to infectious organism, unspecified part of lung Gama Suarez MD Dec 15, 2016 09:30
[2016-12-15] MEDS: RESP: ALBUTEROL 2.5 MG/3 ML NEB (PRN) NEB (10:21)
[2016-12-15 10:22] VITALS: O2SAT 95
[2016-12-15] MEDS ORDERED: BACT800T5 PO ×2 (11:17→11:18)
[2016-12-15] MEDS ORDERED: SULF1TAB23 PO (11:18)
--- NOTE | 2016-12-15 11:23 | HHI.IDPN ---
Note Infectious Disease Note Patient feels okay. Has dyspnea with exertion. Has low grade fever. 100.1 Denies chills. Describes pain in the feet. Noted to have decreased O2 ambulatory sat. Now on 2L O2. CD$ count 82. Presented to the emergency department because of chest pain and SOB. PAST MEDICAL HISTORY Appendectomy. ALLERGIES PENICILLIN LEVAQUIN ANTIBIOTICS: Bactrim PO SOCIAL HISTORY No tobacco, alcohol or illicit drugs. OBJECTIVE: Vital Signs Date Time Temp Pulse Resp B/P Pulse Ox O2 Delivery O2 Flow Rate FiO2 12/15/16 10:22 95 Nasal Cannula 2.00 12/15/16 08:00 98 12/15/16 08:00 100.1 100 29 120/60 89 12/15/16 08:00 Nasal Cannula 2.00 12/15/16 00:00 99.1 97 19 124/62 97 12/14/16 20:03 94 12/14/16 20:00 98.2 90 19 120/60 93 12/14/16 19:31 93 Nasal Cannula 2.00 12/14/16 16:00 98.3 97 17 126/64 92 12/14/16 14:09 2.00 12/14/16 12:17 92 12/14/16 12:00 100.4 107 17 126/64 90 12/14/16 12/14/16 12/15/16 15:00 23:00 07:00 Intake Total 2107 ml 240 ml 240 ml Output Total 1825 ml 800 ml 1100 ml Balance 282 ml -560 ml -860 ml Intake Oral 1200 ml 240 ml 240 ml IV Total 907 ml Output Urine Total 1825 ml 800 ml 1100 ml # Bowel Movements 0 0 0 Laboratory Tests Test 12/14/16 04:46 White Blood Count 3.9 TH/MM3 Red Blood Count 3.30 MIL/MM3 Hemoglobin 9.1 GM/DL Hematocrit 27.9 % Mean Corpuscular Volume 84.5 FL Mean Corpuscular Hemoglobin 27.7 PG Mean Corpuscular Hemoglobin 32.8 % Concent Red Cell Distribution Width 16.4 % Platelet Count 246 TH/MM3 Mean Platelet Volume 8.6 FL Neutrophils (%) (Auto) 64.3 % Lymphocytes (%) (Auto) 27.2 % Monocytes (%) (Auto) 8.2 % Eosinophils (%) (Auto) 0.1 % Basophils (%) (Auto) 0.2 % Neutrophils # (Auto) 2.5 TH/MM3 Lymphocytes # (Auto) 1.1 TH/MM3 Monocytes # (Auto) 0.3 TH/MM3 Eosinophils # (Auto) 0.0 TH/MM3 Basophils # (Auto) 0.0 TH/MM3 CBC Comment AUTO DIFF Differential Total Cells 100 Counted Neutrophils % (Manual) 60 % Band Neutrophils % 9 % Lymphocytes % 19 % Monocytes % 7 % Neutrophils # (Manual) 2.9 TH/MM3 Metamyelocytes 5 % Differential Comment FINAL DIFF MANUAL Platelet Estimate NORMAL Platelet Morphology Comment ENLARGED Ovalocytes Laboratory Tests Test 12/14/16 04:46 Sodium Level 138 MEQ/L Potassium Level 4.1 MEQ/L Chloride Level 106 MEQ/L Carbon Dioxide Level 24.4 MEQ/L Anion Gap 8 MEQ/L Blood Urea Nitrogen 9 MG/DL Creatinine 1.03 MG/DL Estimat Glomerular Filtration 107 ML/MIN Rate Random Glucose 83 MG/DL Calcium Level 8.0 MG/DL Magnesium Level 2.1 MG/DL IMAGING: Chest X-Ray 12/14/16 0600 Signed Impressions: Service Date/Time: November 06:29 - CONCLUSION: Trace left base atelectasis. Kai Downing MD CT Angiography 12/12/16 1053 Signed Impressions: Service Date/Time: Monday, December 12, 2016 12:40 - CONCLUSION: 1. No pulmonary embolus. 2. Multiple patchy areas of faint opacities seen throughout the lungs likely representing areas of atelectasis or interstitial consolidation. There are some more focal areas of more prominent atelectasis or consolidation seen on the right middle lobe and the posterior lower lobes bilaterally. 3. 5 mm non-specific pulmonary nodule in the right lower lobe, this does appear smooth. Given the patient age this likely represents a non-calcified granuloma. It could be followed up with a noncontrast CT examination in one year. Kai Prescott MD Abdomen/Pelvis CT 12/12/16 1053 Signed Impressions: Service Date/Time: Monday, December 12, 2016 12:40 - CONCLUSION: 1. Postsurgical features of prior appendectomy. 2. No CT findings to explain patient's abdominal pain. 3. Unremarkable CT examination of the abdomen and pelvis. Aakash Bill MD PHYSICAL EXAMINATION: GENERAL: No acute distress. HEENT: No icterus. Oropharynx, no visible lesions. NECK: Supple without adenopathy. Lungs: Decreased BS. Heart: Regular rate and rhythm without murmurs, rubs or gallops. Abdomen: Bowel sounds present, soft, nontender. No hepatosplenomegaly. Extremities: No clubbing, cyanosis or edema. The patient has erosion of both nail beds at the great toe, left and right. Skin: Skin is dry and has a faint hyperemic discoloration at the tibias. No diffuse rash. Neuro: Strength 4/5 at the left upper and left lower extremity, otherwise, no gross focal findings. Psych: Calm and cooperative. IMPRESSION 1. Immunosuppression secondary to HIV disease. AIDS. 2. Pneumonia, probably opportunistic. Likely PJP. 3. Fever. Low grade. RECOMMENDATIONS Continue Bactrim PO. Plan on 21 days tid then prophylactic. Prophylactic Fluconazole and Zithromax. Monitor temp. Needs follow up at health Dept for HIV care. D/W Dr. Suarez - Patient may need Home O2 on discharge. Follow up with PCP. Marlon Paige MD Dec 15, 2016 11:23
[2016-12-15 12:00] VITALS: BP 119/55; PULSE 103; RESP 28; TEMP 100; O2SAT 93
[2016-12-15 16:00] VITALS: BP 147/67; PULSE 109; RESP 26; TEMP 97; O2SAT 98
[2016-12-15] MEDS ORDERED: PRED20 PO (16:26)
--- NOTE | 2016-12-15 16:28 | HHI.DS ---
Discharge Summary Admission Date Dec 12, 2016 at 15:49 Discharge Date: Dec 15, 2016 Admitting Diagnosis pneumonia. Viral infection (1) Pneumonia ICD Code: J18.9 Diagnosis: Principal (2) Atypical chest pain ICD Code: R07.89 Diagnosis: Principal Procedures EGD Brief History - From Admission This is a 26-year-old male with a history of enlarged liver and peripheral neuropathy. He presents to the emergency department because of worsening chest pain. Started about 6 months ago he developed nonproductive cough. States he was prescribed Z-Placido 5 months ago by his PCP with partial temporary improvement of his symptoms. It is associated with transient fever and night sweats. He also reports of weight loss of 30 pounds denies anorexia. He was again treated with the same antibiotic 3 months ago with similar results. No TB exposure but works in a [employer]. For the past week he has complained of intermittent pleuritic retrosternal sharp pain worse with coughing and eating. He also notes of odynophagia. In the emergency department, tested positive for HIV pending confirmatory test. CTA no PE but was abnormal showing multiple patchy areas of faint opacity seen throughout the lungs likely representing areas of atelectasis or interstitial consolidation. There are some more focal areas of more prominent atelectasis or consolidation seen on the right middle lobe in the posterior lower lobes bilaterally. He has been recommended admission for further evaluation and treatment for possible PCP. Denies risk factors for HIV. He also meets criteria for sepsis. Also endorses bilateral toe numbness for the past 4 months. All other systems reviewed negative CBC/BMP: 12/14/16 0446 12/14/16 0446 Significant Findings Laboratory Tests Test 12/12/16 12/13/16 12/13/16 12/14/16 16:28 04:14 10:24 04:46 Arterial Blood pH 7.46 (7.380-7.420) Arterial Blood Partial 34 mmHg (38-42) Pressure CO2 Blood Gas Hemoglobin 10.6 G/DL (12.0-16.0) White Blood Count 3.5 TH/MM3 3.9 TH/MM3 (4.0-11.0) (4.0-11.0) Red Blood Count 3.45 MIL/MM3 3.30 MIL/MM3 (4.50-5.90) (4.50-5.90) Hemoglobin 9.4 GM/DL 9.1 GM/DL (13.0-17.0) (13.0-17.0) Hematocrit 29.2 % 27.9 % (39.0-51.0) (39.0-51.0) Monocytes (%) (Auto) 10.5 % 8.2 % (0.0-8.0) (0.0-8.0) Lymphocytes # (Auto) 0.9 TH/MM3 (1.0-4.8) Neutrophils % (Manual) 77 % (16-70) Band Neutrophils % 11 % (0-6) 9 % (0-6) Lymphocytes % 7 % (9-44) Ovalocytes 1+ (NORMAL) Calcium Level 7.3 MG/DL 8.0 MG/DL (8.5-10.1) (8.5-10.1) Protein Corrected Calcium 7.0 MG/DL (8.5-10.1) Iron Level 31 MCG/DL (65-175) Total Iron Binding Capacity 248 MCG/DL (250-450) Percent Iron Saturation 12.5 % (20-50) Ferritin 654 NG/ML (26-388) Lactate Dehydrogenase 402 U/L (87-241) Absolute CD3 Count 753 (840-3060) Percent CD4 Cells 9 % (30-61) Absolute CD4 Count 82 (490-1740) T-Iraan/Suppressor Ratio 0.1 (0.86-5.00) Percent CD8 Cells 68 % (12-42) Absolute CD19 Count 63 (110-660) Metamyelocytes 5 % (0-1) Platelet Morphology Comment ENLARGED (NORMAL) Imaging Last Impressions Chest X-Ray 12/14/16 0600 Signed Impressions: Service Date/Time: November 06:29 - CONCLUSION: Trace left base atelectasis. Kai Downing MD CT Angiography 12/12/16 1053 Signed Impressions: Service Date/Time: Monday, December 12, 2016 12:40 - CONCLUSION: 1. No pulmonary embolus. 2. Multiple patchy areas of faint opacities seen throughout the lungs likely representing areas of atelectasis or interstitial consolidation. There are some more focal areas of more prominent atelectasis or consolidation seen on the right middle lobe and the posterior lower lobes bilaterally. 3. 5 mm non-specific pulmonary nodule in the right lower lobe, this does appear smooth. Given the patient age this likely represents a non-calcified granuloma. It could be followed up with a noncontrast CT examination in one year. Kai Prescott MD Abdomen/Pelvis CT 12/12/16 1053 Signed Impressions: Service Date/Time: Monday, December 12, 2016 12:40 - CONCLUSION: 1. Postsurgical features of prior appendectomy. 2. No CT findings to explain patient's abdominal pain. 3. Unremarkable CT examination of the abdomen and pelvis. Aakash Bill MD PE at Discharge GENERAL: This is a well-nourished, well-developed patient, in no apparent distress. SKIN: No rashes, ecchymoses or lesions. Cool and dry. HEAD: Atraumatic. Normocephalic. No temporal or scalp tenderness. EYES: Pupils equal round and reactive. Extraocular motions intact. No scleral icterus. No injection or drainage. ENT: Nose without bleeding, purulent drainage or septal hematoma. Throat without erythema, tonsillar hypertrophy or exudate. Uvula midline. Airway patent. NECK: Trachea midline. No JVD or lymphadenopathy. Supple, nontender, no meningeal signs. CARDIOVASCULAR: Regular rate and rhythm without murmurs, gallops, or rubs. RESPIRATORY: Clear to auscultation. Breath sounds equal bilaterally. No wheezes , rales, or rhonchi. GASTROINTESTINAL: Abdomen soft, non-tender, nondistended. No guarding. MUSCULOSKELETAL: Extremities without clubbing, cyanosis, or edema. No joint tenderness, effusion, or edema noted. No calf tenderness. Negative Homans sign bilaterally. NEUROLOGICAL: Awake and alert. Cranial nerves II through XII intact. Motor and sensory grossly within normal limits. Five out of 5 muscle strength in all muscle groups. Normal speech. Hospital Course This is a 26-year-old male who presents to the emergency department because of worsening chest pain. Started about 6 months ago he developed nonproductive cough. States he was prescribed Z-Placido 5 months ago by his PCP with partial temporary improvement of his symptoms. It is associated with transient fever and night sweats. He also reports of weight loss of 30 pounds denies anorexia. He was again treated with the same antibiotic 3 months ago with similar results. 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 For the past week he has complained of intermittent pleuritic retrosternal sharp pain worse with coughing and eating. He also notes of odynophagia. In the emergency department , tested positive for HIV pending confirmatory test. CTA no PE but was abnormal showing multiple patchy areas of faint opacity seen throughout the lungs likely representing areas of atelectasis or interstitial consolidation. There are some more focal areas of more prominent atelectasis or consolidation seen on the right middle lobe in the posterior lower lobes bilaterally. He has been recommended admission for further evaluation and treatment for possible PCP. Denies risk factors for HIV. He also meets criteria for sepsis. Pneumonia. Suspect PCP with a preliminary positive HIV test. CTA with no pulmonary embolus but shows multiple patchy areas of faint opacity seen throughout the lungs likely representing areas of atelectasis or interstitial consolidation. There are some more focal areas of more prominent atelectasis or consolidation seen on the right middle lobe in the posterior lower lobes bilaterally. Elevated LDH. Continue Bactrim. Follow-up sputum and urinary pneumococcal and Legionella antigen. Failed Walk test will need home oxygen. Start prednisone Sepsis. Lactic acid within normal limits Atypical chest pain secondary to above and esophagitis. EKG with sinus tachycardia. CTA negative for PE Pulmonary nodule in the right lower lobe. Follow-up noncontrast CT in 1 year Odynophagia with epigastric tenderness. Lipase within normal limits. EGD shows esophagitis consistent with megan continue Diflucan. Patient also has gastritis continue PPI and follow-up pathology Weight loss likely related to above. TSH WNL Mild AST elevation with history of enlarged liver. Outpatient follow-up Normocytic normochromic anemia. Guaiac stool. Monitor History of neuropathy. Continue Neurontin Low risk for DVT Pt Condition on Discharge: Stable Discharge Disposition: Discharge Home Discharge Time: > 30 minutes Discharge Instructions DIET: Follow Instructions for: As Tolerated, No Restrictions Activities you can perform: Regular-No Restrictions Activities to Avoid: Driving Follow up Referrals: Infectious Disease - 1 Week PCP Follow-up - 1 Week New Medications: Fluconazole (Diflucan) 100 Mg Tab 100 MG PO DAILY Infection #14 Ref 0 TAB Oxygen (O2) (Oxygen (O2)) Device 2 LITER MAURISIO.CANULA CONTINUOUS Oxygen Concentrator Portable Gaseous 2 L/min via Nasal Canula Continuous For 99 months Prevent Hypoxemia #2 CYLINDER Sulfamethoxazole-Trimethoprim (Bactrim DS) 800-160 Mg Tab 2 TAB PO DAILY start 01/03/17 Infection #60 Ref 0 TAB Pantoprazole (Pantoprazole) 40 Mg Tab 40 MG PO DAILY Manage Heartburn #30 TAB Prednisone (Prednisone) 20 Mg Tab 40 MG PO BID Take 2 pills twice a day for 5 days then 2 pills daily for 5 days then 1 pill twice per day for 11 days Control Inflammation #39 TAB Sulfamethoxazole-Trimethoprim (Sulfamethoxazole-Trimethoprim) 800-160 Mg Tab 2 TAB PO Q8H thru 01/02/17 Infection #414 TAB Continued Medications: Benzonatate (Tessalon Perles) 100 Mg Cap 100 MG PO TID PRN COUGH Ref 0 CAP Gabapentin (Gabapentin) 300 Mg Cap 300 MG PO TID #90 Ref 0 CAP Additional Information I spent 35 minutes [id number] with the patient or on the richey discussing the patient's disposition, prognosis, and plan of care with patient's caregivers. Over half the time spent was devoted to counseling the patient regarding placement in coordinating care with caregivers and case management. Gama Suarez MD Dec 15, 2016 16:28
[2016-12-15 18:27] LABS: BLOOD GAS BASE EXCESS -2.2 mmol/L (-2-2); BLOOD GAS CARBOXYHEMOGLOBIN 1.1 % (0-4); BLOOD GAS HCO3 22 mmol/L (22-26); BLOOD GAS METHEMOGLOBIN 1.1 % (0-2); BLOOD GAS O2 HGB SATURATION 92 % (90-100); BLOOD GAS OXYGEN CONTENT 13.1 Vol % (12.0-20.0); BLOOD GAS PCO2 34 mmHg (38-42); BLOOD GAS PO2 71 mmHg (61-120); BLOOD GAS TOTAL HGB 10.1 G/DL (12.0-16.0); CRITICAL VALUE NO; DRAW SITE RT RADIAL; FIO2 21 %; NUMBER OF ARTERIAL PUNCTURES 1; STAT NO; TEMP CORR TO 98.6; ULNAR PULSE PRESENT
[2016-12-15] MEDS ORDERED: predniSONE 20 MG TAB PO SCH (21:00)
--- NOTE | 2016-12-19 10:08 | PQ ---
Physician Query Response Document PATIENT: JACQUELINE OCHOA : 1990 ADMIT DATE: 12/12/2016 3:49 PM DISCH DATE: 12/15/2016 7:25 PM RESPONDING PROVIDER #: Alison QUERY TEXT: HIV Clarification and Associated Conditions HIV (Human immunodeficiency virus) is documented in the medical record. Please specify the type Such as: -- Acquired immune deficiency syndrome [AIDS] -- LIIY-myqxhto-vxwiqhr complex [ARC] -- Symptomatic -- Asymptomatic -- With current or previous HIV-related condition (please specify related condition) -- Exposure to HIV -- Inconclusive serologic evidence of HIV -- Other, please specify and need clarification of the suspect PCP which would make this AIDS DX...thank you for your help Also please include any associated conditions, if applicable. The patient's Clinical Indicators include: Pneumonia w suspect PCP w preliminary positive HIV test. If PCP is indicated then patient needs AIDS DX........... Query created by: Gina Camacho on 12/19/2016 9:17 AM RESPONSE TEXT: Patient has AIDS Electronically signed by: Gama Suarez MD 12/19/2016 10:03 AM
== END 2016-12-15 19:25 | disposition home or self-care (01) | DRG 975 ==
LOC: NEPD 10:20 → NEDA 15:49 → N07A 20:23
PROVIDERS: ADMIT Internal Medicine; ATTEND Internal Medicine
PROC: 0DB68ZX Excision of Stomach, Via Natural or Artificial Opening Endoscopic, Diagnostic (ICD-10-PCS; 2016-12-13)
PROC: 0DB38ZX Excision of Lower Esophagus, Via Natural or Artificial Opening Endoscopic, Diagnostic (ICD-10-PCS; principal; 2016-12-13 15:05)
DX: B20 Human immunodeficiency virus [HIV] disease (principal); B59 Pneumocystosis; J98.11 Atelectasis; A41.9 Sepsis, unspecified organism; B37.81 Candidal esophagitis; D64.9 Anemia, unspecified; G62.9 Polyneuropathy, unspecified; J06.9 Acute upper respiratory infection, unspecified; K29.70 Gastritis, unspecified, without bleeding; R13.19 Other dysphagia
CPT/HCPCS: 36600; 71010; 71020; 71275; 74177; 80048; 80053; 80074; 81001; 82550; 82552; 82728; 82805; 83540; 83550; 83605; 83615; 83690; 83735; 83880; 84155; 84443; 84484; 85007; 85027; 85379; 85610; 85730; 86355; 86357; 86359; 86360; 86701; 86702; 86703; 88305; 88312; 93005; 94620; 94640; 94664; J0610; J2405; J3010; J7030; J7060; J7613; Q9967